=== PATIENT | male | born 1945 | race Caucasian/White ===

== ENCOUNTER 2018-03-12 15:21 | Inpatient (IN) | payer OTHER ==
[2018-03-12 15:32] VITALS: BMI 32.3
--- NOTE | 2018-03-12 15:33 | PDOC ---
Rapid Medical Evaluation Time Seen by Provider: 03/12/18 15:29 Medical Evaluation: 03/12/18 15:29 Pt presents to the ED for evaluation of 3 weeks of sore throat. Also with diarrhea for one week. States he was constipated and a stool softener one week ago and has had diarrhea since. Denies fevers, chills, nausea and vomiting, antibiotic use. Exam: Well appearing, ambulatory Orders: labs, ekg, urine Pt to proceed to ED for further evaluation. Discharge Disposition - Diagnosis Sore throat Diarrhea Qualifiers: Diarrhea type: unspecified type Qualified Code(s): R19.7 - Diarrhea, unspecified - Referrals Referrals: Aster Rodas MD [Primary Care Provider] - - Patient Instructions - Post Discharge Activity
[2018-03-12 16:12] LABS: BASO % 0.1 % (0-2.0); EOS % 0.2 % (0-4.5); LYMPH % 5.1 % (8-40); MCH 29.8 pg (25.7-33.7); MCHC 33.3 g/dl (32.0-35.9); MEAN CELL VOLUME 89.6 fl (80-96); MEAN PLT VOLUME 6.9 fl (7.5-11.1); MONO % 11.3 % (3.8-10.2); NEUT % 83.3 % (42.8-82.8); PLATELET COUNT 291 K/MM3 (134-434); RBC 4.69 M/mm3 (4.00-5.60); RDW 14.4 % (11.9-15.9); WHITE BLOOD COUNT 12.3 K/mm3 (4.0-10.0)
[2018-03-12] MEDS ORDERED: SODIUM CHLORIDE 1,000 ML IV STA (16:16)
[2018-03-12 16:47] LABS: INR 1.29 (0.83-1.09); PROTHROMBIN TIME (PATIENT) 15.3 SEC (9.7-13.0)
--- NOTE | 2018-03-12 16:53 | PDOC ---
History of Present Illness - General Chief Complaint: Diarrhea Stated Complaint: THROAT PAIN Time Seen by Provider: 03/12/18 15:29 Past History - Past Medical History Allergies/Adverse Reactions: Allergies Allergy/AdvReac Type Severity Reaction Status Date / Time No Known Allergies Allergy Verified 03/12/18 15:38 Home Medications: Ambulatory Orders Rosuvastatin Calcium [Crestor] 20 mg PO DAILY 03/12/18 Sildenafil Citrate [Viagra] 100 mg PO ASDIR 03/12/18 Tamsulosin HCl [Flomax] 0.4 mg PO DAILY 03/12/18 COPD: No Disorders: Yes (ED) Hypercholesterolemia: Yes - Surgical History GI Surgery: Yes (colonoscopy 2008) - Suicide/Smoking/Psychosocial Hx Smoking History: Never smoked *Physical Exam - Vital Signs Last Vital Signs Temp Pulse Resp BP Pulse Ox 97.7 F 85 26 H 186/85 H 99 03/12/18 15:30 03/12/18 15:30 03/12/18 15:30 03/12/18 15:30 03/12/18 15:30 ED Treatment Course - LABORATORY CBC & Chemistry Diagram: 03/12/18 15:47 03/12/18 15:47 - ADDITIONAL ORDERS Additional order review: 03/12/18 15:47 RBC 4.69 MCV 89.6 MCHC 33.3 RDW 14.4 MPV 6.9 L Neutrophils % 83.3 H Lymphocytes % 5.1 L Monocytes % 11.3 H Eosinophils % 0.2 Basophils % 0.1 - RADIOLOGY Radiology Studies Ordered: Category Date Time Status ABDOMEN & PELVIS CT WITH CONTR [CT] Stat CT Scan 03/12/18 16:16 Ordered Medical Decision Making - Medical Decision Making 03/12/18 16:41 72 yo M, denies any pmhx, here w/ diarrhea. Pt states he developed constipation 2-3 weeks ago and took 1 dose of mineral oil last week and has had been having persistent watery, non-bloody diarrhea all week. Has been wearing diapers since. Had vague lower abdominal pain at some point that has since resolved. No melena, nausea, vomiting, fever or chills. Also reports sore throat x 3 weeks. No tob hx. No known sick contacts See exam Persistent diarrhea after taking laxative Well dipesh w/ elevated BP and benign abd with soft brown stool in diapers -IVF -labs -cdif -CT Pharyngitis HEENT wnl R/o strep 03/12/18 17:10 Multiple electrolyte derangements on labs, including sodium of 129 with BUN >100 , creatinine of 18! and potassium of 6.1 with an anion gap of 28. Etiology unclear at this time, possibly severe dehydration vs occult kidney disease. Of note, patient denies any previous kidney issues and reports that saw his PMD 2 months ago and had negative labs. Will rpt labs but initiate hyperK cocktail. IVF in progress. EKG unremarkable. Will also place segal and get dry CT a/p as d /w ED attg. 03/12/18 17:54 Case d/w Dr Turner, states she saw patient in office today and that patient had a large diarrheal bowel movement in office. Nancy referred patient to ED for further assessment. States pt has no known h/o renal disease. Pt's BUN in 2016 was 12 and Cr was 1.09. States patient's only medical history is diverticular disease. No history of diverticulitis. Nancy states patient has no history of hypertension, but has noticed that recently pt's blood pressure has been more elevated than usual. 03/12/18 18:04 *DC/Admit/Observation/Transfer Diagnosis at time of Disposition: Sore throat, Hyperkalemia, Dehydration Diarrhea Qualifiers: Diarrhea type: unspecified type Qualified Code(s): R19.7 - Diarrhea, unspecified ARF (acute renal failure) Qualifiers: Acute renal failure type: unspecified Qualified Code(s): N17.9 - Acute kidney failure, unspecified - Referrals Referrals: Aster Rodas MD [Primary Care Provider] - - Patient Instructions - Post Discharge Activity
[2018-03-12 16:54] LABS: ALBUMIN 3.2 g/dl (3.4-5.0); ALK PHOS 119 U/L (45-117); ANION GAP 28 MMOL/L (8-16); BILIRUBIN,TOTAL 0.6 mg/dL (0.2-1); CALCIUM 8.2 mg/dL (8.5-10.1); CHLORIDE 88 mmol/L (98-107); CO2 13 mmol/L (21-32); GLUCOSE,RANDOM 103 mg/dL (74-106); SGOT/AST 30 U/L (15-37); SGPT/ALT 73 U/L (13-61); SODIUM 129 mmol/L (136-145); TOT PROT 7.3 g/dl (6.4-8.2)
[2018-03-12 16:57] LABS: BLOOD UREA NITROGEN 192 mg/dL (7-18)
[2018-03-12 16:58] LABS: CREATININE 18.6 mg/dL (0.55-1.3)
[2018-03-12 16:59] LABS: POTASSIUM 6.1 mmol/L (3.5-5.1)
[2018-03-12] MEDS ORDERED: CALCIUM GLUCONATE 10% - 1,000 MG/10 ML VIAL IVPUSH ONE (17:02)
[2018-03-12] MEDS ORDERED: SODIUM POLYSTYRENE SULFONATE 15 GM/60 ML BOTTLE PO ONE (17:02)
[2018-03-12] MEDS ORDERED: CALCIUM GLUCONATE 10% - 1,000 MG/10 ML VIAL ONE (17:04)
[2018-03-12] MEDS ORDERED: SODIUM BICARBONATE 8.4% 50 MEQ/50 ML DISP.SYRIN IVPUSH ONE (17:04)
[2018-03-12] MEDS ORDERED: SODIUM POLYSTYRENE SULFONATE 15 GM/60 ML BOTTLE ONE (17:04)
[2018-03-12] MEDS ORDERED: DEXTROSE 50%-WATER - 25 GM/50 ML VIAL IVPUSH ONE (17:05)
[2018-03-12] MEDS ORDERED: INSULIN REGULAR HUMAN 100 UNITS/ML *VIAL IVPUSH ONE (17:05)
[2018-03-12] MEDS ORDERED: ALBUTEROL SO4 0.083% IH SOL 2.5 MG/3 ML VIAL.NEB. NEB ONE ×2 (17:05→17:23)
[2018-03-12] MEDS ORDERED: DEXTROSE 50%-WATER - 25 GM/50 ML VIAL ONE (17:23)
[2018-03-12] MEDS ORDERED: SODIUM BICARBONATE 8.4% 50 MEQ/50 ML VIAL ONE ×2 (17:24→17:36)
[2018-03-12] MEDS ORDERED: INSULIN REGULAR HUMAN 100 UNITS/ML *VIAL ONE (17:25)
--- NOTE | 2018-03-12 17:44 | PDOC ---
*Physical Exam - Vital Signs Last Vital Signs Temp Pulse Resp BP Pulse Ox 97.7 F 85 26 H 186/85 H 99 03/12/18 15:30 03/12/18 15:30 03/12/18 15:30 03/12/18 15:30 03/12/18 15:30 - Physical Exam Comments: 03/12/18 18:37 Gen: aaox3, nad heent: dry mm heart: +s1s2 reg lungs: cta b/l abd: soft, LLQ ttp, no rebound or guarding, palpable bladder just below the umbilicus ext: no c/c/e ED Treatment Course - LABORATORY CBC & Chemistry Diagram: 03/12/18 15:47 03/12/18 17:30 - ADDITIONAL ORDERS Additional order review: Laboratory Results 03/12/18 03/12/18 15:47 15:47 PT with INR 15.30 H INR 1.29 H Sodium 129 L Potassium 6.1 H* Chloride 88 L Carbon Dioxide 13 L Anion Gap 28 H BUN 192 H* Creatinine 18.6 H* Creat Clearance w eGFR 2.50 Random Glucose 103 Calcium 8.2 L Total Bilirubin 0.6 AST 30 ALT 73 H Alkaline Phosphatase 119 H Total Protein 7.3 Albumin 3.2 L 03/12/18 15:47 RBC 4.69 MCV 89.6 MCHC 33.3 RDW 14.4 MPV 6.9 L Neutrophils % 83.3 H Lymphocytes % 5.1 L Monocytes % 11.3 H Eosinophils % 0.2 Basophils % 0.1 - Medications Given in the ED: ED Medications Discontinued Medications Generic Name Dose Route Start Last Admin Trade Name Axel PRN Reason Stop Dose Admin Albuterol Sulfate 1 amp 03/12/18 17:05 03/12/18 17:39 Ventolin 0.083% Nebulizer Soln - NEB 03/12/18 17:06 1 amp ONCE ONE Administration Calcium Gluconate 1,000 mg 03/12/18 17:02 03/12/18 17:21 Calcium Gluconate 10% - IVPUSH 03/12/18 17:03 1,000 mg ONCE ONE Administration Dextrose 25 gm 03/12/18 17:05 03/12/18 17:39 D50w (Vial) - IVPUSH 03/12/18 17:06 25 gm NOW ONE Administration Sodium Chloride 1,000 mls @ 1,000 mls/hr 03/12/18 16:16 03/12/18 17:21 Normal Saline - IV 03/12/18 17:15 1,000 mls/hr ASDIR STA Administration Insulin Human Regular 10 units 03/12/18 17:05 03/12/18 17:39 Novolin R Vial *For Ivpush Or Iv Drip Only* IVPUSH 03/12/18 17:06 10 units ONCE ONE Administration Sodium Bicarbonate 50 meq 03/12/18 17:04 03/12/18 17:39 Sodium Bicarbonate 8.4% - IVPUSH 03/12/18 17:05 50 meq ONCE ONE Administration Sodium Polystyrene Sulfonate 30 gm 03/12/18 17:02 03/12/18 17:21 Kayexalate - PO 03/12/18 17:03 30 gm ONCE ONE Administration Medical Decision Making - Medical Decision Making 03/12/18 18:38 a/p: 72yo male signed out from the PA for eval of renal failure -segal catheter placed, pt with >2L output - clamped to avoid a post- obstructive diuresis -suspect renal failure multifactorial secondary to diarrhea x 1 week and enlarged prostate hx -will call nephrology -will obtain noncon ct of abd/pelvis -also with diarrhea x 1 week after taking mineral oil -will send stool culture and c diff - though no recent abx -will need admission 03/12/18 18:[address] Butcher who will see the patient in consult - agrees with the plan EKG: sinus at 82, nl axis, nl interval, no acute st/t wave findings 03/12/18 18:51 case discussed with JUANIS who accepts pt to service *DC/Admit/Observation/Transfer Diagnosis at time of Disposition: Sore throat, Hyperkalemia, Dehydration Diarrhea Qualifiers: Diarrhea type: unspecified type Qualified Code(s): R19.7 - Diarrhea, unspecified ARF (acute renal failure) Qualifiers: Acute renal failure type: unspecified Qualified Code(s): N17.9 - Acute kidney failure, unspecified - Discharge Dispostion Condition at time of disposition: Guarded Decision to Admit order: Yes - Referrals Referrals: Aster Rodas MD [Primary Care Provider] - - Patient Instructions - Post Discharge Activity - Attestations Physician Attestion: 03/12/18 18:52 I, Dr. Bela Esparza, DO, attest that this document has been prepared under my direction and personally reviewed by me in its entirety. I further attest, that it accurately reflects all work, treatment, procedures and medical decision -making performed by me.
[2018-03-12 17:59] LABS: EPI CELLS RARE /HPF (FEW)
[2018-03-12 18:13] LABS: ALBUMIN 2.9 g/dl (3.4-5.0); ALK PHOS 106 U/L (45-117); ANION GAP 27 MMOL/L (8-16); BILIRUBIN,TOTAL 0.6 mg/dL (0.2-1); CALCIUM 8.2 mg/dL (8.5-10.1); CHLORIDE 88 mmol/L (98-107); CO2 12 mmol/L (21-32); GLUCOSE,RANDOM 198 mg/dL (74-106); SGOT/AST 28 U/L (15-37); SGPT/ALT 65 U/L (13-61); SODIUM 127 mmol/L (136-145); TOT PROT 6.6 g/dl (6.4-8.2)
[2018-03-12 18:15] LABS: BLOOD UREA NITROGEN 191 mg/dL (7-18); CREATININE 18.4 mg/dL (0.55-1.3); POTASSIUM 6.4 mmol/L (3.5-5.1)
[2018-03-12] MEDS ORDERED: SODIUM CHLORIDE 0.9% 1000 ML INFUS.BAG IV ONE (18:36)
[2018-03-12 18:49] LABS: URINE APPEARANCE Clear; URINE BILIRUBIN Negative (<2.0 mg/dL); URINE COLOR Yellow; URINE GLUCOSE (UA) Negative (NEGATIVE); URINE KETONE Negative (NEGATIVE); URINE LEUK ESTERASE Negative (NEGATIVE); URINE NITRITE Negative (NEGATIVE); URINE PROTEIN 1+ (NEGATIVE); URINE UROBILINOGEN 0.2 mg/dL (0.2-1.0)
[2018-03-12] MEDS ORDERED: CEFTRIAXONE 1 GM in DEXTROSE 5%-WATER - 100 ML IVPB ONE (20:33)
--- NOTE | 2018-03-12 21:38 | HP ---
CHIEF COMPLAINT: Diarrhea PCP: Dr. Hahn HISTORY OF PRESENT ILLNESS: 72 y/o M with PMHx of Diverticular disease and BPH presents with a 1 week hx of Diarrhea. Patient has felt constipation starting about 3 weeks ago. 1 week ago, Patient took 2 tablespoons of Mineral oil laxative and has started having diarrhea daily since. Patient describes this diarrhea as a mixture of formed and loose brown stools, Non bloody, without any associated abdominal pain or fevers. Patient says he has 10 episodes daily. Additionally he experiences 2/10 , LLQ abdominal pressure that doesnt radiate, only worses with palpation and self-resolves. He has had decreased PO intake for the past 3 weeks. Patient went to visit his PCP today and was sent to [facility] after experiencing a large BM in the office. His last BM was before he went for CT scan. He acknowledges a sore throat 3 weeks ago. He denies any hx of constipation, recent abx use, recent medication changes, or sick contacts with similar illness. Denies any fevers, chills, chest pain, SOB, nausea or vomiting. ER course was notable for: (1) Calcium gluconate, D50 with 10u insulin, Kaexalate (2) C. DIff culture (3) CT A/P Recent Travel: [facility] 3 weeks ago PAST MEDICAL HISTORY: Diverticular disease BPH PAST SURGICAL HISTORY: Denies Social History: Smoking: Denies Alcohol: Once weekly Drugs: Denies Occupation: Retired, Dental lab previously Residence: Home with and daughter Ambulation without any assitance Family History: Denies for both mother and father Allergies No Known Allergies Allergy (Verified 03/12/18 15:38) HOME MEDICATIONS: Home Medications Medication Instructions Recorded Rosuvastatin Calcium [Crestor] 20 mg PO DAILY 03/12/18 Sildenafil Citrate [Viagra] 100 mg PO ASDIR 03/12/18 Tamsulosin HCl [Flomax] 0.4 mg PO DAILY 03/12/18 REVIEW OF SYSTEMS As per HPI PHYSICAL EXAMINATION Vital Signs - 24 hr 03/12/18 03/12/18 03/12/18 15:30 18:06 20:11 Temperature 97.7 F 98.1 F Pulse Rate 85 Pulse Rate [ 88 Left Radial] Respiratory 26 H 18 Rate Blood Pressure 186/85 H Blood Pressure 107/54 L [Left Arm] O2 Sat by Pulse 99 98 98 Oximetry (%) GENERAL: A&Ox3, NAD, lying comfortably HEAD: NCAT EYES: PERRL, EOMI EARS, NOSE, THROAT: Oropharynx clear without exudates. Dry mucous membranes. NECK: No JVD LUNGS: Breath sounds equal, clear to auscultation bilaterally. No wheezes. HEART: Regular rate and rhythm, normal S1 and S2, Murmur at the RUSB ABDOMEN: Soft, LLQ Tender to palpation, Distended, + bowel sounds, no guarding, no rebound MUSCULOSKELETAL: No CVA tenderness. EXTREMITIES: 2+ pulses, No calf tenderness. No peripheral edema. NEUROLOGICAL: Cranial nerves II-XII intact. Normal speech. Normal gait. 5/5 muscle strength to handgrip, Elbow flexion/extension, Shoulder abduction, Hip Flexion, Plantarflexion, dorsiflexion PSYCHIATRIC: Cooperative. Good eye contact. Appropriate mood and affect. SKIN: Warm, dry, no rashes or lesions noted Laboratory Results - last 24 hr 03/12/18 03/12/18 03/12/18 15:44 15:47 15:47 WBC 12.3 H RBC 4.69 Hgb 14.0 Hct 42.0 MCV 89.6 MCH 29.8 MCHC 33.3 RDW 14.4 Plt Count 291 MPV 6.9 L Absolute Neuts (auto) 10.2 H Neutrophils % 83.3 H Lymphocytes % 5.1 L Monocytes % 11.3 H Eosinophils % 0.2 Basophils % 0.1 Nucleated RBC % 0 PT with INR 15.30 H INR 1.29 H Sodium Potassium Chloride Carbon Dioxide Anion Gap BUN Creatinine Creat Clearance w eGFR Random Glucose Lactic Acid Calcium Magnesium Total Bilirubin AST ALT Alkaline Phosphatase Creatine Kinase Creatine Kinase Index CK-MB (CK-2) Total Protein Albumin Lipase 1342 H Urine Color Urine Appearance Urine pH Ur Specific Ellery Urine Protein Urine Glucose (UA) Urine Ketones Urine Blood Urine Nitrite Urine Bilirubin Urine Urobilinogen Ur Leukocyte Esterase Urine WBC (Auto) Urine RBC (Auto) Ur Epithelial Cells Ur Random Sodium 03/12/18 03/12/18 03/12/18 15:47 16:46 17:30 WBC RBC Hgb Hct MCV MCH MCHC RDW Plt Count MPV Absolute Neuts (auto) Neutrophils % Lymphocytes % Monocytes % Eosinophils % Basophils % Nucleated RBC % PT with INR INR Sodium 129 L 127 L Potassium 6.1 H* 6.4 H* Chloride 88 L 88 L Carbon Dioxide 13 L 12 L Anion Gap 28 H 27 H BUN 192 H* 191 H* Creatinine 18.6 H* 18.4 H* Creat Clearance w eGFR 2.50 2.54 Random Glucose 103 198 H Lactic Acid Calcium 8.2 L 8.2 L Magnesium Total Bilirubin 0.6 0.6 AST 30 28 ALT 73 H 65 H Alkaline Phosphatase 119 H 106 Creatine Kinase 553 H Creatine Kinase Index 4.9 CK-MB (CK-2) 27.1 H Total Protein 7.3 6.6 Albumin 3.2 L 2.9 L Lipase Urine Color Yellow Urine Appearance Clear Urine pH 5.0 Ur Specific Ellery <= 1.005 L Urine Protein 1+ H Urine Glucose (UA) Negative Urine Ketones Negative Urine Blood 3+ H Urine Nitrite Negative Urine Bilirubin Negative Urine Urobilinogen 0.2 Ur Leukocyte Esterase Negative Urine WBC (Auto) 5 Urine RBC (Auto) 1 Ur Epithelial Cells Rare Ur Random Sodium 03/12/18 03/12/18 03/12/18 17:30 18:20 18:49 WBC RBC Hgb Hct MCV MCH MCHC RDW Plt Count MPV Absolute Neuts (auto) Neutrophils % Lymphocytes % Monocytes % Eosinophils % Basophils % Nucleated RBC % PT with INR INR Sodium Potassium Chloride Carbon Dioxide Anion Gap BUN Creatinine Creat Clearance w eGFR Random Glucose Lactic Acid 1.0 Calcium Magnesium 2.8 H Total Bilirubin AST ALT Alkaline Phosphatase Creatine Kinase Creatine Kinase Index CK-MB (CK-2) Total Protein Albumin Lipase Urine Color Urine Appearance Urine pH Ur Specific Ellery Urine Protein Urine Glucose (UA) Urine Ketones Urine Blood Urine Nitrite Urine Bilirubin Urine Urobilinogen Ur Leukocyte Esterase Urine WBC (Auto) Urine RBC (Auto) Ur Epithelial Cells Ur Random Sodium 35 L Active Medications Heparin Sodium (Porcine) (Heparin -) 5,000 unit SQ TID [facility] Hydralazine HCl (Apresoline -) 50 mg PO TID [facility] Sodium Chloride (Normal Saline -) 1,000 mls @ 125 mls/hr IV ASDIR [facility] ASSESSMENT/PLAN: 72 y/o M with PMHx of Diverticular disease and BPH presents with a 1 week hx of Diarrhea found to have Hyperkalemia and JUMANA #Hyperkalemia -Likely due to JUMANA -Given Calcium gluconate, D50 with 10u insulin, Kaexalate in ED -IV NS @ 125 mls/hr -ABG Pending; Dialysis if intractable acidosis #JUMANA (Post renal) -Nephrology (Dr. Cannon) Consulted -IV NS @ 125 mls/hr -UA, Urine Cr, Urine Lytes ordered -Ordoñez catheter placed, has already emptied 2L in ED -CT A/P Pending #Diarrhea -Likey due to Mineral Oil Laxative however timeframe is extensive -Patient additionally given kayexalate -C. Diff pending -Ceftriaxone, Flagyl started on 03/12 -If does not resolve, consider further imaging as he has a hx of Diverticular disease as per PMD #Severe HTN -Patient denies any hx -Hydralazine 50mg PO TID -Continue to monitor #FEN -IV NS -Treating for Hyperkalemia, Hyponatremia -Sodium controlled diet #PPx -DVT: Heparin Visit type - Emergency Visit Emergency Visit: Yes ED Registration Date: 03/12/18 Care time: The patient presented to the Emergency Department on the above date and was hospitalized for further evaluation of their emergent condition. - New Patient This patient is new to me today: Yes Date on this admission: 03/13/18 - Critical Care Critical Care patient: No
--- NOTE | 2018-03-12 21:46 | PN ---
Teaching Attending Note Name of Resident: Kiarra Casiano ATTENDING PHYSICIAN STATEMENT I saw and evaluated the patient. I reviewed the resident's note and discussed the case with the resident. I agree with the resident's findings and plan as documented. SUBJECTIVE: OBJECTIVE: ASSESSMENT AND PLAN: this is a 72 y/o male patient with hx of HTN, DL, presented to the ER for 1 week diarrhea, and urine retention, according to the patient the diarrhea started when he took some mineral oil 1 week ago and the diarrhea did not resolve. plan: - admit patient to telemetry Hyperkalemia: 2/2 to acute Kidney injury - patient received insulin, dextrose, kayexelate - IV fluid hydration - manage with hyperkalemia with ECG with dialysis if needed - check acidosis if it is intractable then will consider urgent dialysis - patient does JUMANA: renal evaluation IVF hydration urine anaylsis - urine creatinine, urine na HTN: - hydralazine 50mg TID avoid nephrotoxic medication
[2018-03-12 23:36] LABS: ARTERIAL BLD GAS O2 SATURATION 96.8 % (90-98.9); ARTERIAL BLOOD GAS PCO2 20.8 mmHg (35-45); ARTERIAL BLOOD GAS PO2 95.5 mmHg (70-100)
[2018-03-12 23:37] LABS: ALLENS TEST POSITIVE
[2018-03-12] MEDS: hydrALAZINE HCL 50 MG TABLET (FP) PO SCH (23:58)
[2018-03-12] MEDS: HEPARIN NA (PORCINE) 5,000 UNITS/ML 1ML VIAL SQ SCH (23:58)
[2018-03-13 00:22] LABS: URINE APPEARANCE SLCLOUDY; URINE BILIRUBIN NEGATIVE (<2.0 mg/dL); URINE COLOR LTYELLOW; URINE GLUCOSE (UA) NEGATIVE (NEGATIVE); URINE KETONE NEGATIVE (NEGATIVE); URINE LEUK ESTERASE TRACE (NEGATIVE); URINE NITRITE NEGATIVE (NEGATIVE); URINE PROTEIN 1+ (NEGATIVE); URINE UROBILINOGEN NEGATIVE mg/dL (0.2-1.0)
[2018-03-13] MEDS: SODIUM CHLORIDE 1,000 ML IV SCH ×4 (00:30→22:00)
[2018-03-13 00:32] LABS: EPI CELLS RARE /HPF (FEW); URINE BACTERIA RARE /hpf (NONE SEEN); URINE MUCUS RARE
[2018-03-13 00:54] LABS: ALK PHOS 107 U/L (45-117); ANION GAP 21 MMOL/L (8-16); BILIRUBIN,TOTAL 0.7 mg/dL (0.2-1); CALCIUM 8.6 mg/dL (8.5-10.1); CHLORIDE 105 mmol/L (98-107); CO2 13 mmol/L (21-32); GLUCOSE,RANDOM 179 mg/dL (74-106); POTASSIUM 4.1 mmol/L (3.5-5.1); SGOT/AST 32 U/L (15-37); SGPT/ALT 64 U/L (13-61); SODIUM 139 mmol/L (136-145)
[2018-03-13 00:58] LABS: BLOOD UREA NITROGEN 151 mg/dL (7-18)
[2018-03-13 00:59] LABS: CREATININE 10.9 mg/dL (0.55-1.3)
[2018-03-13] MEDS ORDERED: CEFTRIAXONE 1 GM in DEXTROSE 5%-WATER - 50 ML IVPB ONE (01:15)
[2018-03-13] MEDS ORDERED: DEXTROSE 5%-WATER - 50 ML IVPB ONE (01:23)
[2018-03-13] MEDS ORDERED: cefTRIAXone SODIUM 1 GM VIAL ONE (01:23)
[2018-03-13] MEDS: hydrALAZINE HCL 50 MG TABLET (FP) PO SCH ×3 (06:22→22:07)
[2018-03-13] MEDS: HEPARIN NA (PORCINE) 5,000 UNITS/ML 1ML VIAL SQ SCH ×3 (06:22→22:07)
[2018-03-13 08:30] LABS: ALBUMIN 2.8 g/dl (3.4-5.0); ALK PHOS 100 U/L (45-117); ANION GAP 10 MMOL/L (8-16); BILIRUBIN,TOTAL 0.8 mg/dL (0.2-1); BLOOD UREA NITROGEN 98 mg/dL (7-18); CALCIUM 8.6 mg/dL (8.5-10.1); CHLORIDE 117 mmol/L (98-107); CO2 20 mmol/L (21-32); CREATININE 4.8 mg/dL (0.55-1.3); GLUCOSE,RANDOM 150 mg/dL (74-106); MAGNESIUM 2.7 mg/dL (1.8-2.4); PHOSPHOROUS 4.4 mg/dL (2.5-4.9); SGOT/AST 24 U/L (15-37); SGPT/ALT 56 U/L (13-61); SODIUM 148 mmol/L (136-145); TOT PROT 6.6 g/dl (6.4-8.2)
--- NOTE | 2018-03-13 08:49 | PN ---
Progress Note (short form) - Note Progress Note: Patient is comfortable with no acute distress. Vital Signs Temperature 98.4 F 03/13/18 06:00 Pulse Rate 78 03/13/18 06:00 Respiratory Rate 18 03/13/18 06:00 Blood Pressure 162/81 03/13/18 06:00 O2 Sat by Pulse Oximetry (%) 96 03/13/18 08:00 GENERAL: A&Ox3, NAD, lying comfortably HEAD: NCAT, EYES: PERRL, EOMI ,EARS, NOSE, THROAT: Oropharynx clear without exudates. Dry mucous membranes. NECK: No JVD LUNGS: Breath sounds equal, clear to auscultation bilaterally. No wheezes. HEART: Regular rate and rhythm, normal S1 and S2, Murmur at the RUSB ABDOMEN: Soft, LLQ Tender to palpation, Distended, + bowel sounds, no guarding, no rebound EXTREMITIES: 2+ pulses, No calf tenderness. No peripheral edema. NEUROLOGICAL: Cranial nerves II-XII intact. Normal speech. Normal gait. PSYCHIATRIC: Cooperative. Good eye contact. Appropriate mood and affect. SKIN: Warm, dry, no rashes or lesions noted : Ordoñez catheter CBCD WBC 12.3 K/mm3 (4.0-10.0) H 03/12/18 15:47 RBC 4.69 M/mm3 (4.00-5.60) 03/12/18 15:47 Hgb 14.0 GM/dL (11.7-16.9) 03/12/18 15:47 Hct 42.0 % (35.4-49) 03/12/18 15:47 MCV 89.6 fl (80-96) 03/12/18 15:47 MCHC 33.3 g/dl (32.0-35.9) 03/12/18 15:47 RDW 14.4 % (11.9-15.9) 03/12/18 15:47 Plt Count 291 K/MM3 (134-434) 03/12/18 15:47 MPV 6.9 fl (7.5-11.1) L 03/12/18 15:47 CMP Sodium 148 mmol/L (136-145) H 03/13/18 06:14 Potassium 4.0 mmol/L (3.5-5.1) 03/13/18 06:14 Chloride 117 mmol/L (98-107) H 03/13/18 06:14 Carbon Dioxide 20 mmol/L (21-32) L 03/13/18 06:14 Anion Gap 10 MMOL/L (8-16) 03/13/18 06:14 BUN 98 mg/dL (7-18) H 03/13/18 06:14 Creatinine 4.8 mg/dL (0.55-1.3) H 03/13/18 06:14 Creat Clearance w eGFR 11.95 (>60) 03/13/18 06:14 Random Glucose 150 mg/dL (74-106) H 03/13/18 06:14 Calcium 8.6 mg/dL (8.5-10.1) 03/13/18 06:14 Total Bilirubin 0.8 mg/dL (0.2-1) 03/13/18 06:14 AST 24 U/L (15-37) 03/13/18 06:14 ALT 56 U/L (13-61) 03/13/18 06:14 Alkaline Phosphatase 100 U/L (45-117) 03/13/18 06:14 Total Protein 6.6 g/dl (6.4-8.2) 03/13/18 06:14 Albumin 2.8 g/dl (3.4-5.0) L 03/13/18 06:14 CARDIAC ENZYMES Creatine Kinase 553 IU/L (26-308) H 03/12/18 15:47 Current Medications Generic Name Dose Route Start Last Admin Trade Name Freq PRN Reason Stop Dose Admin Heparin Sodium (Porcine) 5,000 unit 03/12/18 22:00 03/13/18 06:22 Heparin - SQ 5,000 unit TID ARRON Administration Hydralazine HCl 50 mg 03/12/18 22:15 03/13/18 06:22 Apresoline - PO 50 mg TID ARRON Administration Sodium Chloride 1,000 mls @ 125 mls/hr 03/12/18 21:45 03/13/18 00:30 Normal Saline - IV 125 mls/hr ASDIR ARRON Administration Home Medications Medication Instructions Recorded Rosuvastatin Calcium [Crestor] 20 mg PO DAILY 03/12/18 Sildenafil Citrate [Viagra] 100 mg PO ASDIR 03/12/18 Tamsulosin HCl [Flomax] 0.4 mg PO DAILY 03/12/18 Aspirin 81 mg PO DAILY 03/13/18 Laboratory Tests 03/12/18 03/12/18 03/12/18 15:47 17:30 23:59 BUN 192 H* 191 H* 151 H* Creatinine 18.6 H* 18.4 H* 10.9 H* Assessment/plan: 72 y/o M with PMHx of Diverticular disease and BPH presents with a 1 week hx of Diarrhea found to have Hyperkalemia and JUMANA #JUMANA : Due to obstructive Uropathy 18.6-->18.4-->10.9 On Tamsulosin, will get urology consult #Acute Hyperkalemia : improved Nephrology (Dr. Cannon) Consulted #Severe HTN: Hydralazine 50mg PO TID #Diarrhea improved DVT PPx: Heparin Visit type - Emergency Visit Emergency Visit: Yes ED Registration Date: 03/12/18 Care time: The patient presented to the Emergency Department on the above date and was hospitalized for further evaluation of their emergent condition. - New Patient This patient is new to me today: Yes Date on this admission: 03/13/18 - Critical Care Critical Care patient: No - Discharge Referral Referred to [facility] No
[2018-03-13 11:18] LABS: BASO % 0.3 % (0-2.0); EOS % 0.1 % (0-4.5); HEMATOCRIT 39.4 % (35.4-49); HEMOGLOBIN 13.1 GM/dL (11.7-16.9); MCH 29.7 pg (25.7-33.7); MCHC 33.3 g/dl (32.0-35.9); MEAN CELL VOLUME 89.3 fl (80-96); MEAN PLT VOLUME 7.1 fl (7.5-11.1); MONO % 14.6 % (3.8-10.2); PLATELET COUNT 281 K/MM3 (134-434); RBC 4.42 M/mm3 (4.00-5.60); RDW 14.2 % (11.9-15.9); WHITE BLOOD COUNT 10.7 K/mm3 (4.0-10.0)
--- NOTE | 2018-03-13 15:00 | EKG ---
Test Reason : Blood Pressure : / mmHG Vent. Rate : 082 BPM Atrial Rate : 082 BPM P-R Int : 168 ms QRS Dur : 100 ms QT Int : 390 ms P-R-T Axes : 056 -04 038 degrees QTc Int : 455 ms NORMAL SINUS RHYTHM MINIMAL VOLTAGE CRITERIA FOR LVH, MAY BE NORMAL VARIANT BORDERLINE ECG WHEN COMPARED WITH ECG OF 15-OCT-2008 11:10, NO SIGNIFICANT CHANGE WAS FOUND Confirmed by MD Lula, Jimmy ([id number]) on 03/13/2018 2:59:52 PM Referred By: Confirmed By:Jimmy Cotton MD
--- NOTE | 2018-03-13 15:30 | CON.NEP ---
Consult Consult Specialty:: nephrology Referred by:: ghulam Reason for Consultation:: acute renal failure - History of Present Illness Chief Complaint: unable to urinate freely - Alcohol/Substance Use Hx Alcohol Use: No - Smoking History Smoking history: Never smoked Have you smoked in the past 12 months: No Home Medications - Allergies Allergies/Adverse Reactions: Allergies Allergy/AdvReac Type Severity Reaction Status Date / Time No Known Allergies Allergy Verified 03/12/18 15:38 - Home Medications Home Medications: Ambulatory Orders Rosuvastatin Calcium [Crestor] 20 mg PO DAILY 03/12/18 Sildenafil Citrate [Viagra] 100 mg PO ASDIR 03/12/18 Tamsulosin HCl [Flomax] 0.4 mg PO DAILY 03/12/18 Aspirin 81 mg PO DAILY 03/13/18 Nephrology Consult - Height Height: 5 ft 10 in - Weight Weight: 225 lb - BMI Body Mass Index (BMI): 32.3 - Lab Results CBC,BMP: CBC, BMP 03/13/18 06:14 03/13/18 06:14 Anion Gap: Anion Gap Anion Gap 10 MMOL/L (8-16) 03/13/18 06:14 - Physical Examination Vital Signs: Vital Signs Temperature 97.5 F L 03/13/18 14:32 Pulse Rate 80 03/13/18 14:32 Respiratory Rate 18 03/13/18 14:32 Blood Pressure 154/84 03/13/18 14:32 O2 Sat by Pulse Oximetry (%) 97 03/13/18 12:00 Assessment/Plan advanced renal failure and urinary retention renal function improving after segal catheter inserion hypernatremia noted and s/p vomiting- he may not be able to drink enough water Plan- bmp now to f/u serum sodium continue ivf to match urine output
[2018-03-13 17:55] LABS: ANION GAP 8 MMOL/L (8-16); BLOOD UREA NITROGEN 47 mg/dL (7-18); CALCIUM 8.4 mg/dL (8.5-10.1); CHLORIDE 122 mmol/L (98-107); CO2 24 mmol/L (21-32); CREATININE 1.7 mg/dL (0.55-1.3); GLUCOSE,RANDOM 165 mg/dL (74-106); POTASSIUM 4.1 mmol/L (3.5-5.1); SODIUM 153 mmol/L (136-145)
[2018-03-14] MEDS: hydrALAZINE HCL 50 MG TABLET (FP) PO SCH ×3 (06:18→21:14)
[2018-03-14] MEDS: HEPARIN NA (PORCINE) 5,000 UNITS/ML 1ML VIAL SQ SCH ×3 (06:19→21:13)
[2018-03-14 07:35] LABS: ALBUMIN 2.5 g/dl (3.4-5.0); ALK PHOS 85 U/L (45-117); ANION GAP 7 MMOL/L (8-16); BILIRUBIN,TOTAL 0.7 mg/dL (0.2-1); BLOOD UREA NITROGEN 22 mg/dL (7-18); CALCIUM 8.4 mg/dL (8.5-10.1); CHLORIDE 121 mmol/L (98-107); CO2 26 mmol/L (21-32); CREATININE 1.1 mg/dL (0.55-1.3); GLUCOSE,RANDOM 150 mg/dL (74-106); MAGNESIUM 2.5 mg/dL (1.8-2.4); PHOSPHOROUS 1.8 mg/dL (2.5-4.9); POTASSIUM 3.9 mmol/L (3.5-5.1); SGOT/AST 24 U/L (15-37); SGPT/ALT 45 U/L (13-61); SODIUM 154 mmol/L (136-145); TOT PROT 6.2 g/dl (6.4-8.2)
[2018-03-14 07:53] LABS: HEMOGLOBIN 12.7 GM/dL (11.7-16.9); MCH 30.3 pg (25.7-33.7); MCHC 33.6 g/dl (32.0-35.9); MEAN CELL VOLUME 90.3 fl (80-96); PLATELET COUNT 306 K/MM3 (134-434); RBC 4.21 M/mm3 (4.00-5.60); RDW 14.2 % (11.9-15.9); WHITE BLOOD COUNT 9.7 K/mm3 (4.0-10.0)
--- NOTE | 2018-03-14 12:42 | PN ---
Physical Exam: SUBJECTIVE: Patient seen and examined. Pt. had no diarrhea over night. Pt. vomited 2x yesterday ut denies any vomiting overnight and denies any nausea. Pt. endorses progressive blurry vision for 2-3 years. Pt. states had echo done 1 -2 years ago in a private office, unsure of results and of who and where it was done. OBJECTIVE: Vital Signs Period Temp Pulse Resp BP Sys/Chan Pulse Ox Last 24 Hr 97.4 F-98 F 74-85 18-20 151-176/64-84 94-97 GENERAL: The patient is awake, alert, and fully oriented, in no acute distress. HEAD: Normal with no signs of trauma. EYES: sclera anicteric, conjunctiva clear. No ptosis. ENT: Ears normal, nares patent, moist mucous membranes. NECK: Trachea midline, supple, no carotid bruit. LUNGS: Breath sounds equal, clear to auscultation bilaterally, no wheezes, no crackles, no accessory muscle use. HEART: Irregular rate and rhythm, S1, S2 without murmur, rub or gallop. ABDOMEN: Soft, nontender, nondistended, normoactive bowel sounds, no guarding, no rebound EXTREMITIES: 2+ dorsal pedal pulses, warm, well-perfused, no edema. NEUROLOGICAL: Normal speech, gait not observed. PSYCH: Normal mood, normal affect? SKIN: Warm, dry, normal turgor Laboratory Results - last 24 hr 03/13/18 03/14/18 03/14/18 16:00 06:19 06:19 WBC 9.7 RBC 4.21 Hgb 12.7 Hct 38.0 MCV 90.3 MCH 30.3 MCHC 33.6 RDW 14.2 Plt Count 306 MPV 7.0 L Sodium 153 H 154 H Potassium 4.1 3.9 Chloride 122 H 121 H Carbon Dioxide 24 26 Anion Gap 8 7 L BUN 47 H 22 H Creatinine 1.7 H 1.1 Creat Clearance w eGFR 39.60 > 60 Random Glucose 165 H 150 H Calcium 8.4 L 8.4 L Phosphorus 1.8 L Magnesium 2.5 H Total Bilirubin 0.7 AST 24 ALT 45 Alkaline Phosphatase 85 Total Protein 6.2 L Albumin 2.5 L Active Medications Current Medications Heparin Sodium (Porcine) (Heparin -) 5,000 unit SQ TID [facility] Last Admin: 03/14/18 06:19 Dose: 5,000 unit Hydralazine HCl (Apresoline -) 50 mg PO TID [facility] Last Admin: 03/14/18 06:18 Dose: 50 mg Sodium Chloride (Normal Saline -) 1,000 mls @ 125 mls/hr IV ASDIR [facility] Last Admin: 03/13/18 22:00 Dose: 125 mls/hr Home Medications Medication Instructions Recorded Rosuvastatin Calcium [Crestor] 20 mg PO DAILY 03/12/18 Sildenafil Citrate [Viagra] 100 mg PO ASDIR 03/12/18 Tamsulosin HCl [Flomax] 0.4 mg PO DAILY 03/12/18 Aspirin 81 mg PO DAILY 03/13/18 ASSESSMENT/PLAN: 72 y/o M with PMHx of Diverticular disease and BPH presents with a 1 week hx of Diarrhea found to have Hyperkalemia and JUMANA #Nephrology -JUMANA(post-renal) Nephrology (Dr. Cannon) Consulted IV NS @ 125 mls/hr UA, Urine Cr, Urine Lytes ordered Ordoñez catheter placed CT A/P: distended bladder, b/l hydronephrosis 2/2 obstruction, enlarged prostate , diverticulosis w/ colonic fat stranding suggesting possible diverticulitis, small amount of intraperitoneal fluid, non-obstructing cholelithiasis. -Hyperkalemia 2/2 to JUMANA-resolved c/w IVF monitor BMP monitor UOP #Gastroenterology -Diarrhea-resolved Likey due to Mineral Oil Laxative however timeframe is extensive Patient additionally given kayexalate in ED C. Diff NTD D/c-Ceftriaxone and Flagyl #Cardiology -Hypertensive Emergency vs. Urgency BP on admission: 186/85; BP Today: 176/83 Patient denies any hx of HTN? Pt. endorses having and Echo 1-2 years ago at private facility( unsure of name or where), was never notified of results. Pt. endorses progressive worsening blurry vision for last 2-3 years; would benefit from outpatient Opthamology referral. c/w Hydralazine 50mg PO TID Continue to monitor BP #FEN -IV NS -monitor electrolytes and replete as needed -Sodium controlled diet #PPx -DVT: Heparin SQ TID
--- NOTE | 2018-03-14 18:52 | PN ---
Teaching Attending Note Name of Resident: Philip Montes ATTENDING PHYSICIAN STATEMENT I saw and evaluated the patient. I reviewed the resident's note and discussed the case with the resident. I agree with the resident's findings and plan as documented. SUBJECTIVE: Patient improved, doing better OBJECTIVE: Vital Signs Temperature 98.3 F 03/14/18 17:05 Pulse Rate 65 03/14/18 17:05 Respiratory Rate 18 03/14/18 17:05 Blood Pressure 140/58 L 03/14/18 17:05 O2 Sat by Pulse Oximetry (%) 96 03/14/18 09:00 GENERAL: A&Ox3, NAD, lying comfortably HEAD: NCAT: EYES: PERRL, EOMI EARS, NOSE, THROAT: Oropharynx clear without exudates. Dry mucous membranes. NECK: No JVD ,LUNGS: Breath sounds equal, clear to auscultation bilaterally. No wheezes. HEART: Regular rate and rhythm, normal S1 and S2, Murmur at the RUSB ABDOMEN: Soft, LLQ Tender to palpation, Distended, + bowel sounds, no guarding, no rebound EXTREMITIES: 2+ pulses, No calf tenderness. No peripheral edema. NEUROLOGICAL: Cranial nerves II-XII intact. Normal speech. Normal gait. PSYCHIATRIC: Cooperative. Good eye contact. Appropriate mood and affect. SKIN: Warm, dry, no rashes or lesions noted CBCD WBC 9.7 K/mm3 (4.0-10.0) 03/14/18 06:19 RBC 4.21 M/mm3 (4.00-5.60) 03/14/18 06:19 Hgb 12.7 GM/dL (11.7-16.9) 03/14/18 06:19 Hct 38.0 % (35.4-49) 03/14/18 06:19 MCV 90.3 fl (80-96) 03/14/18 06:19 MCHC 33.6 g/dl (32.0-35.9) 03/14/18 06:19 RDW 14.2 % (11.9-15.9) 03/14/18 06:19 Plt Count 306 K/MM3 (134-434) 03/14/18 06:19 MPV 7.0 fl (7.5-11.1) L 03/14/18 06:19 CMP Sodium 154 mmol/L (136-145) H 03/14/18 06:19 Potassium 3.9 mmol/L (3.5-5.1) 03/14/18 06:19 Chloride 121 mmol/L (98-107) H 03/14/18 06:19 Carbon Dioxide 26 mmol/L (21-32) 03/14/18 06:19 Anion Gap 7 MMOL/L (8-16) L 03/14/18 06:19 BUN 22 mg/dL (7-18) H 03/14/18 06:19 Creatinine 1.1 mg/dL (0.55-1.3) 03/14/18 06:19 Creat Clearance w eGFR > 60 (>60) 03/14/18 06:19 Random Glucose 150 mg/dL (74-106) H 03/14/18 06:19 Calcium 8.4 mg/dL (8.5-10.1) L 03/14/18 06:19 Total Bilirubin 0.7 mg/dL (0.2-1) 03/14/18 06:19 AST 24 U/L (15-37) 03/14/18 06:19 ALT 45 U/L (13-61) 03/14/18 06:19 Alkaline Phosphatase 85 U/L (45-117) 03/14/18 06:19 Total Protein 6.2 g/dl (6.4-8.2) L 03/14/18 06:19 Albumin 2.5 g/dl (3.4-5.0) L 03/14/18 06:19 CARDIAC ENZYMES Creatine Kinase 553 IU/L (26-308) H 03/12/18 15:47 Current Medications Generic Name Dose Route Start Last Admin Trade Name Freq PRN Reason Stop Dose Admin Heparin Sodium (Porcine) 5,000 unit 03/12/18 22:00 03/14/18 13:09 Heparin - SQ 5,000 unit TID [facility] Administration Hydralazine HCl 50 mg 03/12/18 22:15 03/14/18 13:09 Apresoline - PO 50 mg TID [facility] Administration Sodium Chloride 1,000 mls @ 125 mls/hr 03/12/18 21:45 03/13/18 22:00 Normal Saline - IV 125 mls/hr ASDIR [facility] Administration Home Medications Medication Instructions Recorded Rosuvastatin Calcium [Crestor] 20 mg PO DAILY 03/12/18 Sildenafil Citrate [Viagra] 100 mg PO ASDIR 03/12/18 Tamsulosin HCl [Flomax] 0.4 mg PO DAILY 03/12/18 Aspirin 81 mg PO DAILY 03/13/18 ASSESSMENT AND PLAN: 72 y/o M with PMHx of Diverticular disease and BPH presents with a 1 week hx of Diarrhea found to have Hyperkalemia and JUMANA #JUMANA : Due to obstructive Uropathy 18.6-->18.4-->10.9-->1.1 On Tamsulosin, will get urology consult #Acute Hyperkalemia : will start on 1/2 ns at 75cc/hr ; Nephrology (Dr. Cannon) Consulted #Severe HTN: Hydralazine 50mg PO TID #Diarrhea improved DVT PPx: Heparin
[2018-03-14] MEDS ORDERED: SODIUM CHLORIDE 0.45% 1,000 ML IV SCH (19:45)
--- NOTE | 2018-03-14 19:54 | PN ---
Progress Note (short form) - Note Progress Note: zachary obstructive uropathy Current Medications Heparin Sodium (Porcine) (Heparin -) 5,000 unit SQ TID [facility] Last Admin: 03/14/18 13:09 Dose: 5,000 unit Hydralazine HCl (Apresoline -) 50 mg PO TID [facility] Last Admin: 03/14/18 13:09 Dose: 50 mg Sodium Chloride (1/2 Normal Saline) 1,000 mls @ 75 mls/hr IV ASDIR [facility] Stop: 03/15/18 09:04 Tamsulosin HCl (Flomax -) 0.8 mg PO DAILY@0830 [facility] Last Vital Signs Temp Pulse Resp BP Pulse Ox 98.3 F 65 18 140/58 L 96 03/14/18 17:05 03/14/18 17:05 03/14/18 17:05 03/14/18 17:05 03/14/18 09:00 lungs clear heart reg abd soft nontender ext no edema CBC, BMP 03/14/18 06:19 03/14/18 06:19 IMP- hypernatremia no drinikng water post obstructive diuresis contrating defect Plan- agree with change to d5w IV
[2018-03-14] MEDS ORDERED: ONDANSETRON 4 MG/2 ML VIAL IVPUSH ONE (20:08)
[2018-03-14] MEDS ORDERED: PROCHLORPERAZINE MALEATE 5 MG TABLET PO ONE (20:15)
[2018-03-15] MEDS: hydrALAZINE HCL 50 MG TABLET (FP) PO SCH ×2 (05:21→13:48)
[2018-03-15] MEDS: HEPARIN NA (PORCINE) 5,000 UNITS/ML 1ML VIAL SQ SCH ×2 (05:21→13:48)
[2018-03-15 07:03] LABS: HEMATOCRIT 37.2 % (35.4-49); HEMOGLOBIN 12.2 GM/dL (11.7-16.9); MCHC 32.9 g/dl (32.0-35.9); MEAN PLT VOLUME 6.7 fl (7.5-11.1); PLATELET COUNT 271 K/MM3 (134-434); RBC 4.09 M/mm3 (4.00-5.60); RDW 14.5 % (11.9-15.9); WHITE BLOOD COUNT 10.4 K/mm3 (4.0-10.0)
[2018-03-15 07:37] LABS: ANION GAP 9 MMOL/L (8-16); BLOOD UREA NITROGEN 11 mg/dL (7-18); CALCIUM 7.9 mg/dL (8.5-10.1); CHLORIDE 114 mmol/L (98-107); CO2 27 mmol/L (21-32); CREATININE 0.8 mg/dL (0.55-1.3); GLUCOSE,RANDOM 116 mg/dL (74-106); MAGNESIUM 2.1 mg/dL (1.8-2.4); PHOSPHOROUS 2.4 mg/dL (2.5-4.9); POTASSIUM 3.6 mmol/L (3.5-5.1); SODIUM 149 mmol/L (136-145)
[2018-03-15] MEDS ORDERED: TAMSULOSIN HCL 0.4 MG CAP PO SCH (08:30)
[2018-03-15 09:45] VITALS: BP 126/45; PULSE 64; TEMP 97.9
--- NOTE | 2018-03-15 12:38 | DS ---
Physical Exam: SUBJECTIVE: Patient seen and examined this morning at bedside. No longer having belly pain, diarrhea. Denies Fevers, chills, chest pain, SOB nausea, vomiting, constipation. OBJECTIVE: Vital Signs Period Temp Pulse Resp BP Sys/Chan Pulse Ox Last 24 Hr 97.6 F-98.6 F 64-72 18-20 126-180/45-78 97 Intake & Output 03/12/18 03/13/18 03/14/18 03/15/18 23:59 23:59 23:59 23:59 Intake Total 1000 4278 3725 Output Total 1700 38594 2800 1200 Balance -700 6862 925 -1200 Weight 102.058 kg 102.058 kg PHYSICAL EXAM GENERAL: A&Ox3, NAD, lying comfortably HEAD: NCAT EYES: PERRL, EOMI EARS, NOSE, THROAT: Oropharynx clear without exudates. Dry mucous membranes. NECK: No JVD LUNGS: Breath sounds equal, clear to auscultation bilaterally. No wheezes. HEART: Regular rate and rhythm, normal S1 and S2, Murmur at the RUSB ABDOMEN: Soft, nontender, nondistended, + bowel sounds, no guarding, no rebound : Ordoñez catheter placed draining clear yellow urine EXTREMITIES: 2+ pulses, No peripheral edema. NEUROLOGICAL: Cranial nerves II-XII intact. Normal speech. Normal gait. Gross sensation intact globally. 5/5 muscle strength to handgrip, Elbow flexion/ extension, Shoulder abduction, Hip Flexion, Plantarflexion, dorsiflexion SKIN: Warm, dry, no rashes or lesions noted LABS Laboratory Last Values WBC 10.4 K/mm3 (4.0-10.0) H 03/15/18 05:50 RBC 4.09 M/mm3 (4.00-5.60) 03/15/18 05:50 Hgb 12.2 GM/dL (11.7-16.9) 03/15/18 05:50 Hct 37.2 % (35.4-49) 03/15/18 05:50 MCV 91.0 fl (80-96) 03/15/18 05:50 MCH 30.0 pg (25.7-33.7) 03/15/18 05:50 MCHC 32.9 g/dl (32.0-35.9) 03/15/18 05:50 RDW 14.5 % (11.9-15.9) 03/15/18 05:50 Plt Count 271 K/MM3 (134-434) 03/15/18 05:50 MPV 6.7 fl (7.5-11.1) L 03/15/18 05:50 Absolute Neuts (auto) 8.7 K/mm3 (1.5-8.0) H 03/13/18 06:14 Neutrophils % 81.0 % (42.8-82.8) 03/13/18 06:14 Lymphocytes % 4.0 % (8-40) L D 03/13/18 06:14 Monocytes % 14.6 % (3.8-10.2) H 03/13/18 06:14 Eosinophils % 0.1 % (0-4.5) 03/13/18 06:14 Basophils % 0.3 % (0-2.0) 03/13/18 06:14 Nucleated RBC % 0 % (0-0) 03/13/18 06:14 PT with INR 15.30 SEC (9.7-13.0) H 03/12/18 15:47 INR 1.29 (0.83-1.09) H 03/12/18 15:47 Anticoagulation Therapy No Result Required. 03/12/18 23:20 Puncture Site Left radial 03/12/18 23:20 ABG pH 7.40 (7.35-7.45) 03/12/18 23:20 ABG pCO2 at Pt Temp 20.8 mmHg (35-45) L 03/12/18 23:20 ABG pO2 at Pt Temp 95.5 mmHg (70-100) 03/12/18 23:20 ABG HCO3 12.6 meq/L (22-26) L* 03/12/18 23:20 ABG O2 Sat (Measured) 96.8 % (90-98.9) 03/12/18 23:20 ABG O2 Content 18.4 % vol (15-22) 03/12/18 23:20 ABG Base Excess -10.0 meq/l (-2-2) L 03/12/18 23:20 Fredrick Test Positive 03/12/18 23:20 O2 Delivery Device No Result Required. 03/12/18 23:20 Oxygen Flow Rate Fio2 21% room air 03/12/18 23:20 Vent Mode No Result Required. 03/12/18 23:20 Vent Rate No Result Required. 03/12/18 23:20 Mechanical Rate No Result Required. 03/12/18 23:20 Pressure Support Vent No Result Required. 03/12/18 23:20 Sodium 149 mmol/L (136-145) H 03/15/18 05:50 Potassium 3.6 mmol/L (3.5-5.1) 03/15/18 05:50 Chloride 114 mmol/L (98-107) H 03/15/18 05:50 Carbon Dioxide 27 mmol/L (21-32) 03/15/18 05:50 Anion Gap 9 MMOL/L (8-16) 03/15/18 05:50 BUN 11 mg/dL (7-18) 03/15/18 05:50 Creatinine 0.8 mg/dL (0.55-1.3) 03/15/18 05:50 Creat Clearance w eGFR > 60 (>60) 03/15/18 05:50 Random Glucose 116 mg/dL (74-106) H 03/15/18 05:50 Lactic Acid 1.0 mmol/L (0.4-2.0) 03/12/18 18:20 Calcium 7.9 mg/dL (8.5-10.1) L 03/15/18 05:50 Phosphorus 2.4 mg/dL (2.5-4.9) L 03/15/18 05:50 Magnesium 2.1 mg/dL (1.8-2.4) 03/15/18 05:50 Total Bilirubin 0.7 mg/dL (0.2-1) 03/14/18 06:19 AST 24 U/L (15-37) 03/14/18 06:19 ALT 45 U/L (13-61) 03/14/18 06:19 Alkaline Phosphatase 85 U/L (45-117) 03/14/18 06:19 Creatine Kinase 553 IU/L (26-308) H 03/12/18 15:47 Creatine Kinase Index 4.9 % (0.0-5.0) 03/12/18 15:47 CK-MB (CK-2) 27.1 ng/mL (0.5-3.6) H 03/12/18 15:47 Total Protein 6.2 g/dl (6.4-8.2) L 03/14/18 06:19 Albumin 2.5 g/dl (3.4-5.0) L 03/14/18 06:19 Lipase 1342 U/L (73-393) H 03/12/18 15:44 Urine Color Ltyellow 03/12/18 23:59 Urine Appearance Slcloudy 03/12/18 23:59 Urine pH 5.0 (5.0-8.0) 03/12/18 23:59 Ur Specific Hackett 1.009 (1.010-1.035) L 03/12/18 23:59 Urine Protein 1+ (NEGATIVE) H 03/12/18 23:59 Urine Glucose (UA) Negative (NEGATIVE) 03/12/18 23:59 Urine Ketones Negative (NEGATIVE) 03/12/18 23:59 Urine Blood 3+ (NEGATIVE) H 03/12/18 23:59 Urine Nitrite Negative (NEGATIVE) 03/12/18 23:59 Urine Bilirubin Negative (<2.0 mg/dL) 03/12/18 23:59 Urine Urobilinogen Negative mg/dL (0.2-1.0) 03/12/18 23:59 Ur Leukocyte Esterase Trace (NEGATIVE) 03/12/18 23:59 Urine WBC (Auto) 12 /hpf (3-5) 03/12/18 23:59 Urine RBC (Auto) 2 /hpf (0-3) 03/12/18 23:59 Ur Epithelial Cells Rare /HPF (FEW) 03/12/18 23:59 Urine Crystals Cancelled 03/12/18 16:46 Calcium Oxalate Crystal Cancelled 03/12/18 16:46 Uric Acid Crystals Cancelled 03/12/18 16:46 Triple Phos Crystals Cancelled 03/12/18 16:46 Amorphous Phosphates Cancelled 03/12/18 16:46 Amorphous Urates Cancelled 03/12/18 16:46 Amorphous Sediment Cancelled 03/12/18 16:46 Urine Bacteria Rare /hpf (NONE SEEN) 03/12/18 23:59 Urine Casts Cancelled 03/12/18 16:46 Hyaline Casts Cancelled 03/12/18 16:46 Granular Casts Cancelled 03/12/18 16:46 Waxy Casts Cancelled 03/12/18 16:46 RBC Casts Cancelled 03/12/18 16:46 WBC Casts Cancelled 03/12/18 16:46 Urine Mucus Rare 03/12/18 23:59 Urine Other Cancelled 03/12/18 16:46 Urine Trichomonas Cancelled 03/12/18 16:46 Urine Yeast Cancelled 03/12/18 16:46 Ur Random Sodium 35 MMOL/L (40-220) L 03/12/18 18:49 Microbiology 03/12/18 20:45 Stool Salmonella/Shigella Culture - Preliminary Non Lactose Fermenting Gnb 03/12/18 20:45 Stool Campylobacter Culture - Final NO GROWTH OF CAMPYLOBACTER SPECIES OBTAINED 03/12/18 20:45 Stool Yersinia Culture - Final NO GROWTH OF YERSINIA SPECIES OBTAINED 03/12/18 20:45 Stool Vibrio Culture - Final NO GROWTH OF VIBRIO SPECIES OBTAINED 03/12/18 20:45 Stool Escherichia coli 0157 Culture - Final NO GROWTH OF E COLI 0157 OBTAINED 03/12/18 16:00 Throat Throat Culture - Final NO BETA HEMOLYTIC STREPTOCOCCI ISOLATED 03/12/18 16:00 Throat Group A Strep Rapid Antigen - Final 03/12/18 16:46 Urine - Urine Clean Catch Urine Culture - Final 03/12/18 17:45 Stool Clostridium difficile Antigen (SANDRITA) - Final 03/12/18 17:45 Stool Clostridium difficile Toxin Assay - Final IMAGING: -CT A/P without contrast: A Ordoñez catheter is seen in place. There is however marked urinary bladder distention. Correlate clinically in regards to possible catheter occlusion. Moderate bilateral hydronephrosis is noted - ? secondary to previously described urinary bladder overdistention. There is associated bilateral perirenal and retroperitoneal soft tissue stranding. Correlate with follow-up CT to document resolution. Marked prostate enlargement. Sigmoid diverticulosis is seen with equivocal mild pericolonic soft tissue stranding which could be on the basis of acute diverticulitis. Correlate clinically and with follow-up CT. Small amount of free intraperitoneal fluid. Cholelithiasis. -EKG: NORMAL SINUS RHYTHM, MINIMAL VOLTAGE CRITERIA FOR LVH, VR 82, QTc 455 HOSPITAL COURSE: Date of Admission:03/12/18 Date of Discharge: 03/15/18 72 y/o M with PMHx of Diverticular disease and BPH presents with a 1 week hx of Diarrhea and was admitted for Hyperkalemia and JUMANA. A Ordoñez catheter was placed in the ED, I&Os noted above. Imaging was done noted above. Nephrology was consulted and suggest IVF to match patients urine output. Patient experienced some diarrhea on admission for which stool studies did not have any growth to date (noted above). His Hyperkalemia and diarrhea resolved. Additionally, on admission patients BP was elevated at 186/85 however patient declined an hx of HTN. Patient was started on Hydralazine and Norvasc and his BP improved. Patient was discharged home with strict instructions to follow up with Urology ( Dr. Winn), Nephrology (Dr. Cannon), and PCP. Minutes to complete discharge: 40 Discharge Summary Reason For Visit: ACUTE RENAL FAILURE Current Active Problems ARF (acute renal failure) (Acute) Dehydration (Acute) Diarrhea (Acute) Hyperkalemia (Acute) Sore throat (Acute) Condition: Stable - Instructions Diet, Activity, Other Instructions: You presented to the hospital with vast amounts of diarrhea. You were found to have an acute kidney injury. Medication Changes: 1. Hydralazine 50mg Three times a day was added to your home meds 2. Norvasc 5mg daily was added to your home meds Follow up with the following physicians: 1. Urology: Dr. Winn on 03/23 @ 9:30 am; To further manage your Ordoñez catheter and CT scan findings (Hydronephrosis, Enlarged prostate) 2. Nephrology: Dr. Cannon in one week, please call to schedule follow up 3. PCP: Dr. Hahn in one week, please call to schedule follow up Follow up labs: 1. BMP, Mag, Phos in one week Please refrain from taking anymore laxatives until you follow up with your PCP You blood pressure was very high during your stay. Please continue to take Hydralazine and Norvasc as prescribed. Please follow up with your Ophthamologist. within a week period. You can further discuss this with the PCP. Please continue to monitor your blood pressure at home. Continue all your other medications as prescribed Please return to the ER if you have any signs or symptoms of chest pain, shortness of breath, uncontrollable fever, chills, nausea, vomiting, numbness, tingling, or weakness in any part of your body, changes in vision, or slurred speech. Please return to the ER if symptoms persist, worsen, or new symptoms arise. Referrals: Aster Rodas MD [Primary Care Provider] - 1 Week Dwayne Winn MD [Staff Physician] - 03/23/18 9:30 am (Dr. Winn's office will be mailing you paperwork that must be filled out and brought to the office) Ephraim Cannon MD [Staff Physician] - 1 Week Disposition: HOME - Home Medications Comprehensive Discharge Medication List: Ambulatory Orders Rosuvastatin Calcium [Crestor] 20 mg PO DAILY 03/12/18 Sildenafil Citrate [Viagra] 100 mg PO ASDIR 03/12/18 Tamsulosin HCl [Flomax -] 0.4 mg PO DAILY 03/12/18 Aspirin 81 mg PO DAILY 03/13/18 Amlodipine Besylate [Norvasc -] 5 mg PO DAILY #30 tablet 03/15/18 hydrALAZINE HCL [Apresoline -] 50 mg PO TID #90 tablet 03/15/18 This patient is new to me today: No Emergency Visit: Yes ED Registration Date: 03/12/18 Care time: The patient presented to the Emergency Department on the above date and was hospitalized for further evaluation of their emergent condition. Critical Care patient: No - Discharge Referral Referred to [facility] Med [facility].: No
--- NOTE | 2018-03-15 15:21 | PN ---
Teaching Attending Note Name of Resident: Kiarra Casiano ATTENDING PHYSICIAN STATEMENT I saw and evaluated the patient. I reviewed the resident's note and discussed the case with the resident. I agree with the resident's findings and plan as documented. SUBJECTIVE: Patient is feeling better with no acute distress, No urgency or frequency. OBJECTIVE: Vital Signs Temperature 97.9 F 03/15/18 09:43 Pulse Rate 64 03/15/18 09:43 Respiratory Rate 18 03/15/18 09:43 Blood Pressure 126/45 L 03/15/18 09:43 O2 Sat by Pulse Oximetry (%) 97 03/15/18 09:00 GENERAL: A&Ox3, NAD, lying comfortably HEAD: NCAT: EYES: PERRL, EOMI EARS, NOSE, THROAT: Oropharynx clear without exudates. MMM. NECK: No JVD ,LUNGS: Breath sounds equal, clear to auscultation bilaterally. No wheezes. HEART: Regular rate and rhythm, normal S1 and S2, Murmur at the RUSB ABDOMEN: Soft,NT to palpation, no distention , positive for BS, no guarding, no rebound EXTREMITIES: 2+ pulses, No calf tenderness. No peripheral edema. NEUROLOGICAL: Cranial nerves II-XII intact. Normal speech. Normal gait. PSYCHIATRIC: Cooperative. Good eye contact. Appropriate mood and affect. SKIN: Warm, dry, no rashes or lesions noted CBCD WBC 10.4 K/mm3 (4.0-10.0) H 03/15/18 05:50 RBC 4.09 M/mm3 (4.00-5.60) 03/15/18 05:50 Hgb 12.2 GM/dL (11.7-16.9) 03/15/18 05:50 Hct 37.2 % (35.4-49) 03/15/18 05:50 MCV 91.0 fl (80-96) 03/15/18 05:50 MCHC 32.9 g/dl (32.0-35.9) 03/15/18 05:50 RDW 14.5 % (11.9-15.9) 03/15/18 05:50 Plt Count 271 K/MM3 (134-434) 03/15/18 05:50 MPV 6.7 fl (7.5-11.1) L 03/15/18 05:50 CMP Sodium 149 mmol/L (136-145) H 03/15/18 05:50 Potassium 3.6 mmol/L (3.5-5.1) 03/15/18 05:50 Chloride 114 mmol/L (98-107) H 03/15/18 05:50 Carbon Dioxide 27 mmol/L (21-32) 03/15/18 05:50 Anion Gap 9 MMOL/L (8-16) 03/15/18 05:50 BUN 11 mg/dL (7-18) 03/15/18 05:50 Creatinine 0.8 mg/dL (0.55-1.3) 03/15/18 05:50 Creat Clearance w eGFR > 60 (>60) 03/15/18 05:50 Random Glucose 116 mg/dL (74-106) H 03/15/18 05:50 Calcium 7.9 mg/dL (8.5-10.1) L 03/15/18 05:50 Total Bilirubin 0.7 mg/dL (0.2-1) 03/14/18 06:19 AST 24 U/L (15-37) 03/14/18 06:19 ALT 45 U/L (13-61) 03/14/18 06:19 Alkaline Phosphatase 85 U/L (45-117) 03/14/18 06:19 Total Protein 6.2 g/dl (6.4-8.2) L 03/14/18 06:19 Albumin 2.5 g/dl (3.4-5.0) L 03/14/18 06:19 CARDIAC ENZYMES Creatine Kinase 553 IU/L (26-308) H 03/12/18 15:47 Home Medications Medication Instructions Recorded Rosuvastatin Calcium [Crestor] 20 mg PO DAILY 03/12/18 Sildenafil Citrate [Viagra] 100 mg PO ASDIR 03/12/18 Tamsulosin HCl [Flomax -] 0.4 mg PO DAILY 03/12/18 Aspirin 81 mg PO DAILY 03/13/18 Amlodipine Besylate [Norvasc -] 5 mg PO DAILY #30 tablet 03/15/18 hydrALAZINE HCL [Apresoline -] 50 mg PO TID #90 tablet 03/15/18 ASSESSMENT AND PLAN: 72 y/o M with PMHx of Diverticular disease and BPH presents with a 1 week hx of Diarrhea found to have Hyperkalemia and JUMANA #JUMANA : Due to obstructive Uropathy 18.6-->18.4-->10.9-->1.1-->0.8 today ,On Tamsulosin, as per urology Dr. Adhikari, to go home with segal leg bag and follow with him as an outpatient. Given an appointment for this coming Thursday. #Acute Hyperkalemia : resolved. Nephrology (Dr. Cannon) #Severe HTN: Hydralazine 50mg PO TID, amlodipine, #Diarrhea improved DVT discharge patient home with follow up visit with .
== END 2018-03-15 14:43 | disposition home or self-care (01) | DRG 683 ==
LOC: JER 15:21 → JERBED 19:10 → J4S 22:37
PROVIDERS: ADMIT Internal Medicine; ATTEND Internal Medicine
DX: N17.9 Acute kidney failure, unspecified (principal); E87.1 Hypo-osmolality and hyponatremia; I16.1 Hypertensive emergency; R18.8 Other ascites; E87.0 Hyperosmolality and hypernatremia; R19.7 Diarrhea, unspecified; E86.0 Dehydration; E87.5 Hyperkalemia; N40.0 Benign prostatic hyperplasia without lower urinary tract symptoms; K57.90 Diverticulosis of intestine, part unspecified, without perforation or abscess without bleeding; R33.9 Retention of urine, unspecified; K80.20 Calculus of gallbladder without cholecystitis without obstruction; N13.30 Unspecified hydronephrosis
CPT/HCPCS: 36415; 36600; 74176-TC; 80048; 80053; 81003; 81015; 82550; 82553; 82803; 83605; 83690; 83735; 84100; 84300; 85025; 85027; 85610; 87045; 87046; 87070; 87086; 87186; 87324; 87430; 87449; 93005; 93010; 99285-25; J1644; J7030

== ENCOUNTER 2018-03-23 21:13 | Emergency (ER) | payer OTHER ==
[2018-03-23 21:19] VITALS: BP 129/68; PULSE 99; TEMP 97.6; BMI 30.5
--- NOTE | 2018-03-23 21:19 | PDOC ---
Rapid Medical Evaluation Chief Complaint: Urinary Problem Time Seen by Provider: 03/23/18 21:16 Medical Evaluation: Allergies Allergy/AdvReac Type Severity Reaction Status Date / Time No Known Allergies Allergy Verified 03/12/18 15:38 03/23/18 21:17 I have performed a brief in person evaluation of this patient. This patient presents with a CC of: urinary retention Pt is a 72 Yo male who states that he had his catheter removed this morning and has urinary retention. PE: Skin: Clear Lungs: Clear Heart: RRR Abd: No pain MS: Moves all extremities without difficulty. Neuro: Alert and oriented Psych: Appropriate affect I have ordered the following: UA, urine culture The patient will proceed to the ED for further evaluation. Discharge Disposition - Diagnosis Urinary retention - Referrals Referrals: Aster Rodas MD [Primary Care Provider] - - Patient Instructions - Post Discharge Activity
--- NOTE | 2018-03-23 23:04 | PDOC ---
History of Present Illness <Justin Serrato - Last Filed: 03/24/18 01:33> - History of Present Illness Initial Comments: 03/23/18 23:02 The patient is a 72 year old male who presents with acute urinary retention. Patient has had a catheter in place for the last 1 week following a hospitalization at our facility for Acute Renal Failure. States he visited his urologist, Dr. Putnam, this morning and had the cathether removed. Patient drank water all day but didn't urinate. He started to feel bladder pressure prompting him to visit the ED. The patient denies chest pain, shortness of breath, abdominal pain, nausea/ vomiting, diarrhea/constipation. NKDA Surgical: none reported Social: denies toxic habits PMD: Dr. Kj Turner M.D. <Nelia Tracey - Last Filed: 03/24/18 02:38> - General Chief Complaint: Urinary Problem Stated Complaint: Urinary Problem Time Seen by Provider: 03/23/18 21:16 Past History <Justin Serrato - Last Filed: 03/24/18 01:33> - Past Medical History COPD: No Disorders: Yes (ED) Hypercholesterolemia: Yes - Surgical History GI Surgery: Yes (colonoscopy 2008) - Suicide/Smoking/Psychosocial Hx Smoking History: Never smoked Have you smoked in the past 12 months: No Hx Alcohol Use: No Drug/Substance Use Hx: No Substance Use Type: None Hx Substance Use Treatment: No <Nelia Tracey - Last Filed: 03/24/18 02:38> - Past Medical History Allergies/Adverse Reactions: Allergies Allergy/AdvReac Type Severity Reaction Status Date / Time No Known Allergies Allergy Verified 03/23/18 21:19 Home Medications: Ambulatory Orders Rosuvastatin Calcium [Crestor] 20 mg PO DAILY 03/12/18 Sildenafil Citrate [Viagra] 100 mg PO ASDIR 03/12/18 Tamsulosin HCl [Flomax -] 0.4 mg PO DAILY 03/12/18 Aspirin 81 mg PO DAILY 03/13/18 Amlodipine Besylate [Norvasc -] 5 mg PO DAILY #30 tablet 03/15/18 hydrALAZINE HCL [Apresoline -] 50 mg PO TID #90 tablet 03/15/18 Review of Systems - Review of Systems Constitutional: No: Chills, Fever HEENTM: No: Blurred Vision, Double Vision Respiratory: No: Cough, Shortness of Breath Cardiac (ROS): No: Chest Pain, Lightheadedness, Palpitations, Syncope ABD/GI: No: Constipated, Diarrhea, Nausea, Vomiting : No: Burning, Dysuria <Nelia Tracey - Last Filed: 03/24/18 02:38> *Physical Exam - Vital Signs Last Vital Signs Temp Pulse Resp BP Pulse Ox 97.6 F 99 H 18 129/68 99 03/23/18 21:16 03/23/18 21:16 03/23/18 21:16 03/23/18 21:16 03/23/18 21:16 <Justin Serrato - Last Filed: 03/24/18 01:33> - Vital Signs Last Vital Signs Temp Pulse Resp BP Pulse Ox 97.6 F 99 H 18 129/68 99 03/23/18 21:16 03/23/18 21:16 03/23/18 21:16 03/23/18 21:16 03/23/18 21:16 - Physical Exam General Appearance: Yes: Nourished, Appropriately Dressed HEENT: positive: Normal Voice, Hearing Grossly Normal Neck: positive: Trachea midline, Supple Respiratory/Chest: positive: Lungs Clear, Normal Breath Sounds Cardiovascular: positive: S1, S2 Gastrointestinal/Abdominal: positive: Normal Bowel Sounds, Soft. negative: Distended, Guarding, Tenderness, Hernia, Mass Musculoskeletal: positive: CVA Tenderness (L). negative: CVA Tenderness (R) Extremity: positive: Normal Capillary Refill, Normal Inspection Integumentary: positive: Normal Color, Dry, Warm Neurologic: positive: Fully Oriented, Alert <Nelia Tracey - Last Filed: 03/24/18 02:38> Medical Decision Making - Medical Decision Making 03/23/18 23:08 72 year old male with obstructive uropathy. S/p recent catherization. 1.7 L output in ED. Concern for post obstructive diuresis --> dehydration. Will monitor UOP and hydrate. No UA/UC, labs as they are unlikely to change clinical management. Patient's urologist, Dr. Dawson begum. 03/23/18 23:30 Case d/w Dr. Torres (urology mason tender restoration labor). S/p diuresis, patient safe for d/c home can follow up in office tomorrow a.m. 03/23/18 23:44 03/24/18 01:31 S/p 1 L IV hydration Patient ambulatory, improved, requesting D/C home. At this time patient safe for d/c home given close urology follow-up and improved clinical condition. I discussed the physical exam findings, ancillary test results and final diagnoses with the patient. I answered all of the patient's questions. The patient was satisfied with the care received and felt comfortable with the discharge plan and treatment plan. The patient will return to the Emergency Department with any new, persistent or worsening symptoms. <Nelia Tracey - Last Filed: 03/24/18 02:38> *DC/Admit/Observation/Transfer - Discharge Dispostion Decision to Admit order: No - Attestations Physician Attestion: 03/24/18 01:34 I, Dr. Justin Serrato MD, attest that this document has been prepared under my direction and personally reviewed by me in its entirety. I further attest, that it accurately reflects all work, treatment, procedures and medical decision -making performed by me. <Justin Serrato - Last Filed: 03/24/18 01:33> <Nelia Tracey - Last Filed: 03/24/18 02:38> Diagnosis at time of Disposition: Urinary retention - Discharge Dispostion Disposition: HOME Condition at time of disposition: Stable - Referrals Referrals: Aster Rodas MD [Primary Care Provider] - - Patient Instructions Printed Discharge Instructions: DI for Urinary Retention in Men Additional Instructions: As discussed, follow up with Dr. Winn at 9am in the morning. Return to the emergency department if you have any new, worsening, or concerning symptoms. - Post Discharge Activity
[2018-03-23] MEDS ORDERED: SODIUM CHLORIDE 0.9% 500 ML INFUS.BAG IV ONE (23:46)
--- NOTE | 2018-03-24 00:36 | PDOC ---
Attending Attestation - Resident Resident Name: Nelia Tracey - ED Attending Attestation I have performed the following: I have examined & evaluated the patient, The case was reviewed & discussed with the resident, I agree w/resident's findings & plan, Exceptions are as noted - HPI HPI: 03/24/18 00:31 The patient is a 72 year old male, with no significant past medical history, who presents to the emergency department with urinary retention. As per patient , he had his catheter removed earlier today by Dr. Winn after being in place for a week. He notes urinary retention since its removal. He has been eating and drinking normally, but states he has been drinking a lot of water to go to the bathroom. He called Dr. Winn multiple times without hearing back , [facility]. Segal placed on arrival, total UOP 1.7L clear urine so far with significant relief of symptoms for pt. He denies any recent fevers, chills, headache or dizziness. He denies any recent nausea, vomit, diarrhea or constipation. He denies any recent chest pain or shortness of breath. Allergies: NKDA Primary Care Physician: Dr. Kj Turner - Physicial Exam PE: 03/24/18 00:33 agree with resident exam - Medical Decision Making 03/24/18 00:34 72yo M presents with failed trail of void after segal removal this AM. 1.7L UOP since placement, likely as pt has been drinking excessively in attempt to void. Will give pt 1L NS as there is likely element of post obstructive diuresis. In the meantime will reassess UOP. Case discussed with Dr. Torres by Dr. Tracey, pt can be seen in the AM tomorrow for f/u. Will hold off on labs/UA as they are unlikely to waste/materials exchange specialist, pt has no infectious sxs and urine is clear. 03/24/18 01:30 UOP slowed down, total output 1.7L Pt s/p 1L NS IV Feels well REquests DC home Ambulating in ED Has appt with Dr. Torres at 9am tomorrow I discussed the physical exam findings, ancillary test results and final diagnoses with the patient. I answered all of the patient's questions. The patient was satisfied with the care received and felt comfortable with the discharge plan and treatment plan. The patient will call their primary care physician within 24 hours to arrange follow-up and will return to the Emergency Department with any new, persistent or worsening symptoms.
== END 2018-03-24 01:35 | disposition home or self-care (01) ==
LOC: JER 21:13
PROC: 0T9B70Z Drainage of Bladder with Drainage Device, Via Natural or Artificial Opening (ICD-10-PCS; principal; 2018-03-23)
DX: R33.8 Other retention of urine (principal); N52.9 Male erectile dysfunction, unspecified; I10 Essential (primary) hypertension
CPT/HCPCS: 51702; 99283-25

== ENCOUNTER 2018-04-15 08:29 | Day surgery (SDC) | payer OTHER ==
[2018-04-13 17:12] VITALS: BMI 28.2
[2018-04-15] MEDS ORDERED: MIDAZOLAM HCL 2 MG/2 ML SINGLE DOSE VIAL ONE (09:48)
[2018-04-15] MEDS ORDERED: BUPIVACAINE HCL/PF 0.5% (5MG/ML) 10 ML VIAL ONE (09:54)
[2018-04-15] MEDS ORDERED: LIDOCAINE HCL 2% 100 MG/5 ML DISP.SYRIN ONE (10:00)
[2018-04-15] MEDS ORDERED: ceFAZolin SODIUM 1 GM VIAL ONE (10:15)
[2018-04-15] MEDS ORDERED: ceFAZolin SODIUM 1 GM VIAL IVPB ONE (10:16)
[2018-04-15] MEDS ORDERED: LACTATED RINGERS SOLUTION 1,000 ML IV SCH (11:15)
[2018-04-15] MEDS ORDERED: ONDANSETRON 4 MG/2 ML VIAL IVPUSH PRN (11:15)
[2018-04-15] MEDS ORDERED: PROMETHAZINE HCL 25 MG/1 ML VIAL IVPB PRN (11:15)
[2018-04-15] MEDS ORDERED: oxyCODONE HCL 5 MG TABLET PO PRN (11:19)
--- NOTE | 2018-04-15 11:22 | OP ---
Operative Note - Note: Operative Date: 04/15/18 Pre-Operative Diagnosis: BPH/retention Operation: Bipolar TURVP/TURP Post-Operative Diagnosis: Same as Pre-op Surgeon: Dwayne Winn Anesthesiologist/JOURNALISM TEACHER: Dustin Acosta Anesthesia: Spinal Specimens Removed: prostate chips Drains & Tubes with Location: 24fr 3 way Operative Report Dictated: Yes
[2018-04-15] MEDS ORDERED: DEXTROSE 5%-0.45% SALINE 1,000 ML IV SCH (11:30)
--- NOTE | 2018-04-15 12:10 | OP ---
DATE OF OPERATION: 04/15/2018 PREOPERATIVE DIAGNOSIS: Benign prostatic hyperplasia with urinary retention. POSTOPERATIVE DIAGNOSIS: Benign prostatic hyperplasia with urinary retention. PROCEDURE: Bipolar transurethral vaporization and resection of the prostate. SURGEON: Sarah Morgan MD INDICATION: Patient is a 72-year-old male with BPH, and urinary retention failed multiple voiding trials despite maximum medical therapy. After reviewing treatment options, he elected to undergo bipolar TURP and TURVP. Risks, benefits, and alternatives were discussed including risk of bleeding, infection, impotence, incontinence, stricture formation, persistent retention, potential need for additional procedures, potential for injury to adjacent organs. Informed consent was obtained. DESCRIPTION OF PROCEDURE: Patient was taken to the OR and placed supine on the table. After cardiac monitoring was administered and general anesthesia was established, he was prepped and draped in dorsal lithotomy position. A 26-sheath resectoscope was inserted into the urethra without difficulty. Anterior urethra was normal. The prostatic urethra was 4 cm and visually occlusive with obstructing lateral lobes and median lobes. Bilateral ureteral orifices were seen in normal anatomic position. There were no bladder tumors. At this point with the resectoscope, situated just past the verumontanum, the prostate tissue was resected circumferentially starting at the bladder neck and median bar and then lateral lobes. Followed by resection, the button loop was used to cauterize the tissue. All prostate chips were removed with the [place] evacuator. At the completion of the procedure, with the resectoscope situated just past the verumontanum, a wide-open channel was seen going to the bladder. There was no resection within 1 cm of the verumontanum to minimize the chance of incontinence. Resectoscope was then removed and then a 24-Mongolian Ordoñez was then placed to straight drainage. [place]-tinged urine was retrieved. The patient was woken from anesthesia and transferred to the recovery room in stable condition. There were no complications. Estimated blood loss was minimal. SARAH MORGAN M.D. [id number]
[2018-04-15 16:49] VITALS: BP 139/58; PULSE 60; TEMP 97.5
--- NOTE | 2018-04-19 17:44 | PATH ---
Surgical Pathology Report Patient Name: BLAZE MOODY [facility]. Rec. #: [id number] /Age/Gender: 1945 (Age: 72) / M Account: [id number] Location: [facility] SURGICAL Taken: 04/15/2018 Received: 04/15/2018 Reported: 04/19/2018 Physicians: Dwayne Winn M.D. Specimen(s) Received PROSTATE CHIPS Clinical History BPH, urine retention Final Diagnosis PROSTATE CHIPS, TRANSURETHRAL RESECTION OF PROSTATE: BENIGN PROSTATIC TISSUE WITH ACUTE AND CHRONIC INFLAMMATION, CYSTIC CHANGES, GLANDULAR AND STROMAL HYPERPLASIA. UROTHELIAL MUCOSA WITH ACUTE AND CHRONIC CYSTITIS. Electronically Signed Shital Little M.D. Gross Description Received in formalin labeled "prostate chips," is a 5 g, 0.5 x 5.0 x 0.5 cm aggregate of goodrich, firm to rubbery portions of tissue, consistent with prostate chips. The specimen is entirely submitted in 7 cassettes. 04/16/2018 saudi04/16/2018
== END 2018-04-15 14:45 | disposition home or self-care (01) ==
LOC: JASU-SURG 08:29
PROVIDERS: ATTEND Urology
PROC: 0V508ZZ Destruction of Prostate, Via Natural or Artificial Opening Endoscopic (ICD-10-PCS; principal; 2018-04-15 10:00)
DX: N40.1 Benign prostatic hyperplasia with lower urinary tract symptoms (principal); R33.8 Other retention of urine
CPT/HCPCS: 88305-TC; 94760

== ENCOUNTER 2018-04-20 22:03 | Emergency (ER) | payer OTHER ==
[2018-04-20 22:23] VITALS: TEMP 98.4; BMI 29.1
--- NOTE | 2018-04-20 22:34 | PDOC ---
*Physical Exam - Vital Signs Last Vital Signs Temp Pulse Resp BP Pulse Ox 98.4 F 85 22 H 181/97 H 100 04/20/18 22:18 12 22:18 04/20/18 22:18 04/20/18 22:18 04/20/18 22:18 Medical Decision Making - Medical Decision Making 04/20/18 22:33 Mr Middleton is s 72 yo M who presents to the ER in urinary retention s/p segal cathether removal today by his urologist He called his urologist who recommended that he come in to the ER for segal cathether placement Pt seen by Midlevel Provider under my direct supervision Pt interviewed and examined I agree with plan as outlined by Midlevel Provider *DC/Admit/Observation/Transfer Diagnosis at time of Disposition: Urinary retention due to benign prostatic hyperplasia - Discharge Dispostion Disposition: HOME Condition at time of disposition: Improved - Referrals Referrals: Aster Rodas MD [Primary Care Provider] - 3 days Dwayne Winn MD [Staff Physician] - Call tomorrow - Patient Instructions Printed Discharge Instructions: DI for Urinary Retention in Men Additional Instructions: Thank you for choosing [facility]. It was a pleasure taking care of you. You were seen here for urinary retention for which you had a Segal placed. Please follow-up with your urologist tomorrow. Return to the Emergency Department if your symptoms worsen or persist, you have fever, abdominal pain, blood in urine, unable to produce any urine or other concerning symptoms. - Post Discharge Activity
--- NOTE | 2018-04-20 22:46 | PDOC ---
History of Present Illness - General Chief Complaint: Urinary Problem Stated Complaint: Urinary Problem Time Seen by Provider: 04/20/18 22:09 History Source: Patient Exam Limitations: No Limitations Past History - Past Medical History Allergies/Adverse Reactions: Allergies Allergy/AdvReac Type Severity Reaction Status Date / Time No Known Allergies Allergy Verified 04/13/18 17:19 Home Medications: Ambulatory Orders Rosuvastatin Calcium [Crestor] 20 mg PO DAILY 03/12/18 Tamsulosin HCl [Flomax -] 0.4 mg PO DAILY 03/12/18 Amlodipine Besylate [Norvasc -] 5 mg PO DAILY #30 tablet 03/15/18 hydrALAZINE HCL [Apresoline -] 50 mg PO TID #90 tablet 03/15/18 Aspirin Coated [Ecotrin -] 81 mg PO DAILY 04/13/18 Anemia: No Asthma: No Cancer: No Cardiac Disorders: No CVA: No COPD: No CHF: No Dementia: No Diabetes: No GI Disorders: No Disorders: No HTN: No Hypercholesterolemia: Yes Liver Disease: No Seizures: No Thyroid Disease: No Other medical history: enlarged prostate - Surgical History GI Surgery: Yes (colonoscopy 2008) - Suicide/Smoking/Psychosocial Hx Smoking History: Never smoked Have you smoked in the past 12 months: No Information on smoking cessation initiated: No Hx Alcohol Use: No Drug/Substance Use Hx: No Substance Use Type: Alcohol Hx Substance Use Treatment: No Review of Systems - Review of Systems Constitutional: No: Chills, Fever Respiratory: No: Shortness of Breath Cardiac (ROS): No: Chest Pain : No: Dysuria, Hematuria *Physical Exam - Vital Signs Last Vital Signs Temp Pulse Resp BP Pulse Ox 98.4 F 85 22 H 181/97 H 100 04/20/18 22:18 04/20/18 22:18 04/20/18 22:18 04/20/18 22:18 04/20/18 22:18 - Physical Exam General Appearance: No: Apparent Distress Respiratory/Chest: positive: Lungs Clear, Normal Breath Sounds. negative: Respiratory Distress Cardiovascular: positive: Regular Rhythm, Regular Rate, S1, S2. negative: Murmur Gastrointestinal/Abdominal: positive: Normal Bowel Sounds, Soft. negative: Tender, Distended, Guarding, Rebound Neurologic: positive: Fully Oriented, Alert, Normal Mood/Affect Moderate Sedation - Procedure Monitoring Vital Signs: Procedure Monitoring Vital Signs Temperature 98.4 F 04/20/18 22:18 Pulse Rate 85 04/20/18 22:18 Respiratory Rate 22 H 04/20/18 22:18 Blood Pressure 181/97 H 04/20/18 22:18 O2 Sat by Pulse Oximetry (%) 100 04/20/18 22:18 Medical Decision Making - Medical Decision Making 72 y/o M hx of BPH s/p TURP on 04/[address] Dwayne Winn presents for urinary retention. Patient saw his urologist who removed his segal today around 9 AM, but patient had been unable to void the whole day since Segal removal. He contacted his urologist again who advised him to come to ED. When patient was seen, he had already Segal placed, which had drained 1450 mL of clear yellow urine. Patient mentions feeling much better. Patient's abdomen is nondistended on exam. Denies fever, chills, sob, cp, abd pain, n/v, hematuria. Patient states he can follow-up with his urologist tomorrow. Stable for discharge 04/20/18 22:44 *DC/Admit/Observation/Transfer Diagnosis at time of Disposition: Urinary retention due to benign prostatic hyperplasia - Discharge Dispostion Disposition: HOME Condition at time of disposition: Improved - Referrals Referrals: Aster Rodas MD [Primary Care Provider] - 3 days Dwayne Winn MD [Staff Physician] - Call tomorrow - Patient Instructions Printed Discharge Instructions: DI for Urinary Retention in Men Additional Instructions: Thank you for choosing [facility]. It was a pleasure taking care of you. You were seen here for urinary retention for which you had a Segal placed. Please follow-up with your urologist tomorrow. Return to the Emergency Department if your symptoms worsen or persist, you have fever, abdominal pain, blood in urine, unable to produce any urine or other concerning symptoms. - Post Discharge Activity
[2018-04-20 23:19] VITALS: BP 176/82; PULSE 82
== END 2018-04-20 23:42 | disposition home or self-care (01) ==
LOC: JER 22:03
PROC: 0T9B70Z Drainage of Bladder with Drainage Device, Via Natural or Artificial Opening (ICD-10-PCS; principal; 2018-04-20)
DX: N40.1 Benign prostatic hyperplasia with lower urinary tract symptoms (principal); R33.8 Other retention of urine; Z98.890 Other specified postprocedural states; E78.00 Pure hypercholesterolemia, unspecified
CPT/HCPCS: 51702; 99282-25

== ENCOUNTER → 2018-04-20 | Emergency (ER) | payer OTHER | END | disposition left against medical advice (07) | LOC: JER 22:00 | DX: Z53.21 Procedure and treatment not carried out due to patient leaving prior to being seen by health care provider (principal) ==

== ENCOUNTER 2018-06-17 09:37 | Day surgery (SDC) | payer OTHER ==
[2018-06-16 09:01] VITALS: BMI 28.5
[~2018-06-17 09:37] MED LIST: ceFAZolin SODIUM 1 GM VIAL IVPB ONE
[2018-06-17] MEDS ORDERED: MIDAZOLAM HCL 2 MG/2 ML SINGLE DOSE VIAL ONE ×2 (12:09→12:28)
[2018-06-17] MEDS ORDERED: GENTAMICIN 80MG PREMIX BAG IVPB ONE (12:10)
[2018-06-17] MEDS ORDERED: ceFAZolin SODIUM 1 GM VIAL IVPB ONE (12:11)
[2018-06-17] MEDS ORDERED: GENTAMICIN SO4 80 MG/2 ML VIAL ONE ×2 (12:24→12:31)
[2018-06-17] MEDS ORDERED: PROPOFOL 20 ML ONE (12:42)
[2018-06-17] MEDS ORDERED: oxyCODONE HCL 5 MG TABLET PO PRN (13:25)
[2018-06-17] MEDS ORDERED: ONDANSETRON 4 MG/2 ML VIAL IVPUSH PRN (13:35)
[2018-06-17] MEDS ORDERED: LACTATED RINGERS SOLUTION 1,000 ML IV SCH (13:45)
--- NOTE | 2018-06-17 14:04 | OP ---
DATE OF OPERATION: 06/17/2018 PREOPERATIVE DIAGNOSIS: Benign prostatic hypertrophy with urinary retention. POSTOPERATIVE DIAGNOSIS: Benign prostatic hypertrophy with urinary retention. PROCEDURE: Repeat transurethral vaporization and resection of the prostate. SURGEON: Sarah Morgan MD INDICATIONS: Patient is a 72-year-old male with a history of BPH and large prostate status post bipolar TURP/TURVP approximately 2 months ago; however, he has persistent urinary retention. After reviewing treatment options, patient elected to undergo repeat resection and vaporization in an effort to promote normal urination. Risks, benefits, and alternatives were discussed including chance of impotence, incontinence, or erectile dysfunction, stricture formation, potential injury to adjacent organs, potential need for additional procedures. DESCRIPTION OF PROCEDURE: After informed consent was obtained, the patient was taken to the OR and placed supine on the operating room table. He was given spinal anesthetic. He was prepped and draped in dorsal lithotomy position. He was given 2 g of Ancef and 1 mL gentamicin. The resectoscope was inserted into the urethra without difficulty. Anterior urethra was normal. Prostatic urethra had an open bladder neck. There was some residual lateral tissue. Bilateral ureteral orifices were seen in normal anatomic position. Using a combination of resection and vaporization, the lateral ureteral tissues were resected to the level of the verumontanum, but not past the verumontanum. Resection was carried out circumferentially until a wide open channel was created with situated right past the verumontanum, wide open channel was noted into the bladder. All the prostate chips were removed with Ellik evacuator and sent to Pathology for analysis. All bleeding sites were fulgurated. No evidence of any injury to the ureters. Resectoscope was then removed, and then, a 24-Yoruba Ordoñez was then placed to straight drainage. [place]-tinged urine was retrieved. Patient was awoken from anesthesia and transferred to recovery room in stable condition. There were no complications. Estimated blood loss was 50 mL. SARAH MORGAN M.D. [id number]
[2018-06-17] MEDS: DEXTROSE 5%-0.45% SALINE 1,000 ML IV SCH (16:55)
[2018-06-18] MEDS: DEXTROSE 5%-0.45% SALINE 1,000 ML IV SCH (01:19)
[2018-06-18 09:24] VITALS: TEMP 98.4
--- NOTE | 2018-06-18 09:37 | PN ---
Progress Note (short form) - Note Progress Note: S/P TURP Patient has not been able to void segal replaced with clear urine output. discharge home with segal to leg bag.
[2018-06-18 11:43] VITALS: BP 166/92; PULSE 92
--- NOTE | 2018-06-22 17:35 | PATH ---
Surgical Pathology Report Patient Name: BLAZE MOODY [facility]. Rec. #: [id number] /Age/Gender: 1945 (Age: 72) / M Account: [id number] Location: [facility] SURGICAL Taken: 06/17/2018 Received: 06/18/2018 Reported: 06/22/2018 Physicians: Dwayne Winn M.D. Specimen(s) Received PROSTATE CHIPS Clinical History Retention of urine Final Diagnosis PROSTATE, TRANSURETHRAL RESECTION OF PROSTATE: BENIGN PROSTATIC TISSUE WITH ACUTE AND CHRONIC INFLAMMATION, CYSTIC CHANGES, GLANDULAR AND STROMAL HYPERPLASIA. UROTHELIAL MUCOSA WITH CYSTITIS CYSTICA AND GLANDULARIS. Electronically Signed Shital Little M.D. Gross Description Received in formalin labeled "prostate tissue," is a 6 g, 7.5 x 6.0 x 0.4 cm aggregate of multiple goodrich, irregular, firm to rubbery portions of tissue, consistent with prostate chips. The specimen is entirely submitted in 8 cassettes. /06/18/2018 saudi06/18/2018
== END 2018-06-18 11:58 | disposition home or self-care (01) ==
LOC: JASU-SURG 09:37 → J6S 16:45 → JASU-SURG 06-18 11:58
PROVIDERS: ATTEND Urology
PROC: 0V508ZZ Destruction of Prostate, Via Natural or Artificial Opening Endoscopic (ICD-10-PCS; principal; 2018-06-17 11:00)
DX: N40.1 Benign prostatic hyperplasia with lower urinary tract symptoms (principal); R33.8 Other retention of urine
CPT/HCPCS: 88305-TC; 94760

== ENCOUNTER 2021-07-19 19:33 | Emergency (ER) | payer OTHER ==
[2021-07-19 19:40] VITALS: TEMP 98.2; BMI 29.8
[2021-07-19 20:43] LABS: EPI CELLS 7 /uL (0-25.1); HYALINE CASTS 2 /uL (0-3.1); URINE APPEARANCE TURBID; URINE BILIRUBIN 1+ (NEGATIVE); URINE COLOR RED; URINE GLUCOSE (UA) NEGATIVE (NEGATIVE); URINE KETONE NEGATIVE (NEGATIVE); URINE LEUK ESTERASE 2+ (NEGATIVE); URINE NITRITE POSITIVE (NEGATIVE); URINE PROTEIN 2+ (NEGATIVE); URINE RBC 25327 /uL (0-23.9); URINE UROBILINOGEN 0.2 mg/dL (0.2-1.0); URINE WBC 78 /uL (0-25.8)
[2021-07-19 21:12] LABS: BASO % 1.2 % (0-2.0); EOS % 1.6 % (0-4.5); HEMATOCRIT 41.1 % (35.4-49); LYMPH % 22.7 % (8-40); MCH 30.9 pg (25.7-33.7); MEAN CELL VOLUME 90.7 fl (80-96); MEAN PLT VOLUME 7.6 fl (7.5-11.1); MONO % 9.2 % (3.8-10.2); NEUT % 65.3 % (42.8-82.8); PLATELET COUNT 269 10^3/uL (134-434); RBC 4.53 M/mm3 (4.00-5.60); RDW 14.8 % (11.9-15.9); WHITE BLOOD COUNT 7.8 K/mm3 (4.0-10.0)
[2021-07-19] MEDS ORDERED: CEFTRIAXONE 1 GM in DEXTROSE 5%-WATER - 100 ML IVPB ONE (21:26)
[2021-07-19 21:49] LABS: BLOOD UREA NITROGEN 23.6 mg/dL (7-18); CALCIUM 8.9 mg/dL (8.5-10.1)
[2021-07-19 21:50] LABS: ALBUMIN 3.7 g/dl (3.4-5.0)
[2021-07-19 21:53] LABS: CREATININE 1.2 mg/dL (0.55-1.3)
[2021-07-19] MEDS ORDERED: CEFTRIAXONE 1 GM/50 ML BAG ONE (21:53)
[2021-07-19 21:54] LABS: BILIRUBIN,TOTAL 0.8 mg/dL (0.2-1); TOT PROT 7.1 g/dl (6.4-8.2)
[2021-07-19 22:08] LABS: URINE BACTERIA 4 /uL (0-1359)
[2021-07-19 22:30] LABS: INR 1.09 (0.83-1.09); PROTHROMBIN TIME (PATIENT) 12.5 SEC (9.7-13.0)
[2021-07-19 22:32] LABS: ACTIVATED PTT 30.8 SECONDS (25.2-36.5)
[2021-07-19 23:01] VITALS: BP 138/79; PULSE 56
== END 2021-07-19 23:40 | disposition home or self-care (01) ==
LOC: JER 19:33
PROC: 3E033GC Introduction of Other Therapeutic Substance into Peripheral Vein, Percutaneous Approach (ICD-10-PCS; principal; 2021-07-19)
DX: N39.0 Urinary tract infection, site not specified (principal); R31.9 Hematuria, unspecified
CPT/HCPCS: 36415; 76775-TC; 80053; 81003; 85025; 85610; 85730; 87086; 99284-25

== ENCOUNTER 2022-05-30 13:04 | Emergency (ER) | payer OTHER ==
[2022-05-30 13:18] VITALS: TEMP 98.1; BMI 27.8
[2022-05-30 14:41] LABS: BASO % 0.6 % (0-2.0); EOS % 1.3 % (0-4.5); HEMATOCRIT 43.1 % (35.4-49); HEMOGLOBIN 14.3 GM/dL (11.7-16.9); LYMPH % 24.2 % (8-40); MCH 30.6 pg (25.7-33.7); MCHC 33.3 g/dl (32.0-35.9); MEAN CELL VOLUME 91.8 fl (80-96); MEAN PLT VOLUME 7.2 fl (7.5-11.1); NEUT % 61.9 % (42.8-82.8); PLATELET COUNT 264 10^3/uL (134-434); RBC 4.69 M/mm3 (4.00-5.60); RDW 14.8 % (11.9-15.9); WHITE BLOOD COUNT 7.2 K/mm3 (4.0-10.0)
[2022-05-30 14:56] LABS: INR 1.13 (0.83-1.09)
[2022-05-30 14:59] LABS: ACTIVATED PTT 30.2 SECONDS (25.2-36.5)
[2022-05-30 15:02] LABS: CALCIUM 9.6 mg/dL (8.5-10.1)
[2022-05-30 15:03] LABS: BLOOD UREA NITROGEN 16.1 mg/dL (7-18); MAGNESIUM 2.3 mg/dL (1.8-2.4)
[2022-05-30 15:06] LABS: ALBUMIN 3.9 g/dl (3.4-5.0); PHOSPHOROUS 3.2 mg/dL (2.5-4.9)
[2022-05-30 15:07] LABS: BILIRUBIN,TOTAL 0.9 mg/dL (0.2-1); TOT PROT 7.1 g/dl (6.4-8.2)
[2022-05-30 15:50] LABS: EPI CELLS 7 /uL (0-25.1); HYALINE CASTS 2 /uL (0-3.1); URINE APPEARANCE TURBID; URINE BACTERIA 0 /uL (0-1359); URINE BILIRUBIN NEGATIVE (NEGATIVE); URINE COLOR ORANGE; URINE GLUCOSE (UA) NEGATIVE (NEGATIVE); URINE KETONE NEGATIVE (NEGATIVE); URINE LEUK ESTERASE 1+ (NEGATIVE); URINE NITRITE NEGATIVE (NEGATIVE); URINE PROTEIN 2+ (NEGATIVE); URINE RBC 21467 /uL (0-23.9); URINE WBC 70 /uL (0-25.8)
[2022-05-30 16:17] VITALS: BP 121/68; PULSE 63; RESP 16
== END 2022-05-30 18:12 | disposition home or self-care (01) ==
LOC: JER 13:04
DX: R31.9 Hematuria, unspecified (principal)
CPT/HCPCS: 36415; 76775-TC; 80053; 81003; 83690; 83735; 84100; 85025; 85610; 85730; 87086; 93005; 93010; 99285-25

== ENCOUNTER 2022-08-11 22:31 | Inpatient (IN) | payer OTHER ==
[2022-08-12 00:19] LABS: BASO % 0.2 % (0-2.0); EOS % 0.1 % (0-4.5); HEMATOCRIT 32.8 % (35.4-49); HEMOGLOBIN 11.4 GM/dL (11.7-16.9); LYMPH % 6.2 % (8-40); MCHC 34.6 g/dl (32.0-35.9); MEAN CELL VOLUME 89.6 fl (80-96); MONO % 8.3 % (3.8-10.2); NEUT % 85.2 % (42.8-82.8); PLATELET COUNT 231 10^3/uL (134-434); RBC 3.66 M/mm3 (4.00-5.60); RDW 14.4 % (11.9-15.9); WHITE BLOOD COUNT 13.9 K/mm3 (4.0-10.0)
[2022-08-12 00:26] LABS: INR 1.13 (0.83-1.09); PROTHROMBIN TIME (PATIENT) 13.1 SEC (9.7-13.0)
[2022-08-12 00:38] LABS: CALCIUM 9.1 mg/dL (8.5-10.1)
[2022-08-12 00:39] LABS: ALBUMIN 3.4 g/dl (3.4-5.0); BLOOD UREA NITROGEN 26.7 mg/dL (7-18)
[2022-08-12 00:42] LABS: CREATININE 1.3 mg/dL (0.55-1.3)
[2022-08-12 00:44] LABS: BILIRUBIN,TOTAL 0.8 mg/dL (0.2-1); TOT PROT 6.2 g/dl (6.4-8.2)
[2022-08-12] MEDS ORDERED: POTASSIUM CHLORIDE ORAL LIQUID 20 MEQ/15 ML PO ONE ×2 (01:20→15:57)
[2022-08-12 01:36] LABS: URINE APPEARANCE BLOODY; URINE COLOR RED
[2022-08-12] MEDS ORDERED: LACTATED RINGERS SOLUTION 1000 ML INFUS.BAG IV ONE (01:37)
[2022-08-12 01:38] LABS: URINE BILIRUBIN NEGATIVE (NEGATIVE); URINE GLUCOSE (UA) TRACE (NEGATIVE); URINE KETONE NEGATIVE (NEGATIVE)
[2022-08-12 01:39] LABS: URINE UROBILINOGEN 0.2 mg/dL (0.2-1.0)
[2022-08-12 01:45] LABS: EPI CELLS FEW /uL (0-25.1); URINE RBC >100 /uL (0-23.9); URINE WBC 0-3 /uL (0-25.8)
[2022-08-12] MEDS ORDERED: POTASSIUM CHLORIDE ORAL LIQUID 20 MEQ/15 ML ONE (04:13)
[2022-08-12] MEDS ORDERED: INSULIN SLIDING SCALE (NOVOLOG) 1 VIAL SQ SCH (07:00)
[2022-08-12] MEDS ORDERED: TAMSULOSIN HCL 0.4 MG CAP ONE (08:37)
[2022-08-12] MEDS: TAMSULOSIN HCL 0.4 MG CAP PO SCH (08:39)
[2022-08-12 12:14] LABS: HEMATOCRIT 32.1 % (35.4-49); HEMOGLOBIN 11.2 GM/dL (11.7-16.9); MCH 31.2 pg (25.7-33.7); MEAN CELL VOLUME 89.2 fl (80-96); MEAN PLT VOLUME 7.2 fl (7.5-11.1); PLATELET COUNT 225 10^3/uL (134-434); RDW 14.7 % (11.9-15.9); RETICULOCYTES 1.67 % (0.5-1.5); WHITE BLOOD COUNT 9.5 K/mm3 (4.0-10.0)
[2022-08-12 12:39] LABS: BLOOD UREA NITROGEN 20.1 mg/dL (7-18)
[2022-08-12 12:40] LABS: MAGNESIUM 2.2 mg/dL (1.8-2.4)
[2022-08-12 12:42] LABS: PHOSPHOROUS 3.6 mg/dL (2.5-4.9)
[2022-08-12 12:51] VITALS: BMI 27.8
[2022-08-12 15:36] LABS: HEMATOCRIT 30.4 % (35.4-49); HEMOGLOBIN 10.5 GM/dL (11.7-16.9); MCH 30.9 pg (25.7-33.7); MCHC 34.5 g/dl (32.0-35.9); MEAN CELL VOLUME 89.7 fl (80-96); MEAN PLT VOLUME 6.8 fl (7.5-11.1); PLATELET COUNT 216 10^3/uL (134-434); RDW 14.3 % (11.9-15.9); WHITE BLOOD COUNT 8.9 K/mm3 (4.0-10.0)
[2022-08-12] MEDS: ROSUVASTATIN CA 20 MG TABLET PO SCH (21:52)
[2022-08-13 08:50] LABS: BASO % 0.5 % (0-2.0); EOS % 2.4 % (0-4.5); HEMATOCRIT 30.4 % (35.4-49); HEMOGLOBIN 10.5 GM/dL (11.7-16.9); LYMPH % 18.2 % (8-40); MCH 31.1 pg (25.7-33.7); MCHC 34.6 g/dl (32.0-35.9); MEAN PLT VOLUME 7.1 fl (7.5-11.1); MONO % 8.6 % (3.8-10.2); NEUT % 70.3 % (42.8-82.8); PLATELET COUNT 227 10^3/uL (134-434); RBC 3.38 M/mm3 (4.00-5.60); RDW 14.6 % (11.9-15.9); WHITE BLOOD COUNT 7.4 K/mm3 (4.0-10.0)
[2022-08-13] MEDS: TAMSULOSIN HCL 0.4 MG CAP PO SCH (09:13)
[2022-08-13 09:22] LABS: ALBUMIN 3.2 g/dl (3.4-5.0); CALCIUM 8.6 mg/dL (8.5-10.1)
[2022-08-13 09:23] LABS: BLOOD UREA NITROGEN 18.7 mg/dL (7-18); MAGNESIUM 2.1 mg/dL (1.8-2.4)
[2022-08-13 09:24] LABS: PHOSPHOROUS 3.4 mg/dL (2.5-4.9)
[2022-08-13 09:25] LABS: CREATININE 1.1 mg/dL (0.55-1.3)
[2022-08-13] MEDS: ROSUVASTATIN CA 20 MG TABLET PO SCH (21:59)
[2022-08-14] MEDS: TAMSULOSIN HCL 0.4 MG CAP PO SCH (08:38)
[2022-08-14 10:26] LABS: BASO % 0.3 % (0-2.0); EOS % 1.4 % (0-4.5); HEMATOCRIT 29.9 % (35.4-49); HEMOGLOBIN 10.6 GM/dL (11.7-16.9); LYMPH % 13.9 % (8-40); MCH 31.6 pg (25.7-33.7); MCHC 35.3 g/dl (32.0-35.9); MEAN CELL VOLUME 89.3 fl (80-96); MEAN PLT VOLUME 7.5 fl (7.5-11.1); MONO % 8.7 % (3.8-10.2); NEUT % 75.7 % (42.8-82.8); PLATELET COUNT 243 10^3/uL (134-434); RBC 3.35 M/mm3 (4.00-5.60); RDW 14.5 % (11.9-15.9); WHITE BLOOD COUNT 7.2 K/mm3 (4.0-10.0)
[2022-08-14 10:51] LABS: BLOOD UREA NITROGEN 16.1 mg/dL (7-18)
[2022-08-14 10:52] LABS: ALBUMIN 3.2 g/dl (3.4-5.0); CALCIUM 8.5 mg/dL (8.5-10.1)
[2022-08-14 10:55] LABS: PHOSPHOROUS 1.9 mg/dL (2.5-4.9)
[2022-08-14 10:57] LABS: BILIRUBIN,TOTAL 0.8 mg/dL (0.2-1); TOT PROT 6.1 g/dl (6.4-8.2)
[2022-08-14] MEDS ORDERED: ONDANSETRON 4 MG/2 ML VIAL IVPUSH PRN ×2 (14:27→17:17)
[2022-08-14] MEDS ORDERED: PROMETHAZINE HCL 25 MG/1 ML VIAL IVPB PRN ×2 (14:27→17:17)
[2022-08-14] MEDS ORDERED: LACTATED RINGERS SOLUTION 1,000 ML IV SCH (14:30)
[2022-08-14] MEDS ORDERED: AMPICILLIN NA/SULBACTAM NA 3 GM VIAL IVPB ONE (16:16)
[2022-08-14] MEDS: LACTATED RINGERS SOLUTION 1,000 ML IV SCH (18:20)
[2022-08-14] MEDS: ROSUVASTATIN CA 20 MG TABLET PO SCH (22:33)
[2022-08-15] MEDS: LACTATED RINGERS SOLUTION 1,000 ML IV SCH (02:55)
[2022-08-15 09:06] LABS: BASO % 0.4 % (0-2.0); EOS % 4.9 % (0-4.5); HEMATOCRIT 28.3 % (35.4-49); HEMOGLOBIN 9.9 GM/dL (11.7-16.9); LYMPH % 16.1 % (8-40); MCH 31.4 pg (25.7-33.7); MCHC 34.9 g/dl (32.0-35.9); MEAN CELL VOLUME 89.8 fl (80-96); MONO % 10.3 % (3.8-10.2); NEUT % 68.3 % (42.8-82.8); PLATELET COUNT 222 10^3/uL (134-434); RBC 3.15 M/mm3 (4.00-5.60); RDW 14.4 % (11.9-15.9); WHITE BLOOD COUNT 7.5 K/mm3 (4.0-10.0)
[2022-08-15 09:07] LABS: CALCIUM 8.3 mg/dL (8.5-10.1)
[2022-08-15 09:08] LABS: ALBUMIN 2.9 g/dl (3.4-5.0); BLOOD UREA NITROGEN 11.4 mg/dL (7-18); MAGNESIUM 2.3 mg/dL (1.8-2.4)
[2022-08-15 09:11] LABS: CREATININE 0.9 mg/dL (0.55-1.3); PHOSPHOROUS 3.6 mg/dL (2.5-4.9)
[2022-08-15 09:13] LABS: BILIRUBIN,TOTAL 0.8 mg/dL (0.2-1); TOT PROT 5.6 g/dl (6.4-8.2)
[2022-08-15] MEDS: TAMSULOSIN HCL 0.4 MG CAP PO SCH (09:55)
[2022-08-15] MEDS: CLOPIDOGREL BISULFATE 75 MG TABLET (FP) PO SCH (11:27)
[2022-08-15] MEDS: ASPIRIN 81 MG CHEWABLE TABLETS PO SCH (11:27)
[2022-08-15] MEDS: ROSUVASTATIN CA 20 MG TABLET PO SCH (21:24)
[2022-08-16] MEDS: TAMSULOSIN HCL 0.4 MG CAP PO SCH (08:41)
[2022-08-16 08:50] LABS: BASO % 0.6 % (0-2.0); EOS % 4.6 % (0-4.5); HEMATOCRIT 28.6 % (35.4-49); HEMOGLOBIN 9.7 GM/dL (11.7-16.9); LYMPH % 18.6 % (8-40); MCH 30.9 pg (25.7-33.7); MEAN CELL VOLUME 90.8 fl (80-96); MEAN PLT VOLUME 7.1 fl (7.5-11.1); MONO % 9.8 % (3.8-10.2); NEUT % 66.4 % (42.8-82.8); PLATELET COUNT 229 10^3/uL (134-434); RBC 3.15 M/mm3 (4.00-5.60); RDW 14.5 % (11.9-15.9)
[2022-08-16 09:05] LABS: CALCIUM 8.5 mg/dL (8.5-10.1)
[2022-08-16 09:06] LABS: ALBUMIN 2.9 g/dl (3.4-5.0); BLOOD UREA NITROGEN 12.4 mg/dL (7-18); MAGNESIUM 2.4 mg/dL (1.8-2.4)
[2022-08-16 09:09] LABS: CREATININE 0.9 mg/dL (0.55-1.3); PHOSPHOROUS 3.3 mg/dL (2.5-4.9)
[2022-08-16 09:10] LABS: BILIRUBIN,TOTAL 0.6 mg/dL (0.2-1); TOT PROT 5.7 g/dl (6.4-8.2)
[2022-08-16] MEDS: ROSUVASTATIN CA 20 MG TABLET PO SCH (21:27)
[2022-08-17] MEDS: TAMSULOSIN HCL 0.4 MG CAP PO SCH (07:53)
[2022-08-17 08:52] LABS: BASO % 0.5 % (0-2.0); EOS % 4.2 % (0-4.5); HEMATOCRIT 30.9 % (35.4-49); HEMOGLOBIN 10.8 GM/dL (11.7-16.9); LYMPH % 17.5 % (8-40); MCH 31.7 pg (25.7-33.7); MCHC 35.1 g/dl (32.0-35.9); MEAN CELL VOLUME 90.1 fl (80-96); MEAN PLT VOLUME 6.9 fl (7.5-11.1); MONO % 8.6 % (3.8-10.2); NEUT % 69.2 % (42.8-82.8); PLATELET COUNT 255 10^3/uL (134-434); RBC 3.42 M/mm3 (4.00-5.60); RDW 14.2 % (11.9-15.9); WHITE BLOOD COUNT 6.8 K/mm3 (4.0-10.0)
[2022-08-17] MEDS: ASPIRIN 81 MG CHEWABLE TABLETS PO SCH (09:00)
[2022-08-17] MEDS: CLOPIDOGREL BISULFATE 75 MG TABLET (FP) PO SCH (09:00)
[2022-08-17 09:21] LABS: CALCIUM 8.6 mg/dL (8.5-10.1)
[2022-08-17 09:22] LABS: ALBUMIN 3.1 g/dl (3.4-5.0); BLOOD UREA NITROGEN 15.2 mg/dL (7-18); MAGNESIUM 2.4 mg/dL (1.8-2.4)
[2022-08-17 09:25] LABS: CREATININE 0.8 mg/dL (0.55-1.3); PHOSPHOROUS 3.1 mg/dL (2.5-4.9)
[2022-08-17 09:26] LABS: BILIRUBIN,TOTAL 0.5 mg/dL (0.2-1)
[2022-08-17] MEDS: LACTATED RINGERS SOLUTION 1,000 ML IV SCH (17:00)
[2022-08-17] MEDS: ROSUVASTATIN CA 20 MG TABLET PO SCH (21:26)
[2022-08-18 06:15] VITALS: RESP 20
[2022-08-18 08:35] LABS: BASO % 0.4 % (0-2.0); EOS % 4.4 % (0-4.5); HEMATOCRIT 30.6 % (35.4-49); HEMOGLOBIN 10.7 GM/dL (11.7-16.9); LYMPH % 18.5 % (8-40); MCH 31.1 pg (25.7-33.7); MCHC 34.9 g/dl (32.0-35.9); MEAN CELL VOLUME 89.3 fl (80-96); MONO % 10.3 % (3.8-10.2); NEUT % 66.4 % (42.8-82.8); PLATELET COUNT 267 10^3/uL (134-434); RBC 3.43 M/mm3 (4.00-5.60); RDW 14.1 % (11.9-15.9); WHITE BLOOD COUNT 7.2 K/mm3 (4.0-10.0)
[2022-08-18] MEDS: TAMSULOSIN HCL 0.4 MG CAP PO SCH (08:38)
[2022-08-18 09:11] LABS: CALCIUM 8.6 mg/dL (8.5-10.1); MAGNESIUM 2.3 mg/dL (1.8-2.4)
[2022-08-18 09:12] LABS: PHOSPHOROUS 3.2 mg/dL (2.5-4.9)
[2022-08-18 09:13] LABS: CREATININE 0.9 mg/dL (0.55-1.3)
[2022-08-18 09:14] LABS: BILIRUBIN,TOTAL 0.5 mg/dL (0.2-1)
[2022-08-18] MEDS: ASPIRIN 81 MG CHEWABLE TABLETS PO SCH (11:26)
[2022-08-18] MEDS: CLOPIDOGREL BISULFATE 75 MG TABLET (FP) PO SCH (11:26)
[2022-08-18 14:17] VITALS: BP 142/72; PULSE 69; TEMP 97.5
== END 2022-08-18 16:14 | disposition home or self-care (01) | DRG 713 ==
LOC: JER 22:31 → JERBED 08-12 04:03 → OBSVTOIN 08-12 06:19 → J6S 08-12 09:12
PROVIDERS: ADMIT Internal Medicine; ATTEND Internal Medicine
PROC: 0VT08ZZ Resection of Prostate, Via Natural or Artificial Opening Endoscopic (ICD-10-PCS; principal; 2022-08-14 15:30)
PROC: 0W3R8ZZ Control Bleeding in Genitourinary Tract, Via Natural or Artificial Opening Endoscopic (ICD-10-PCS; 2022-08-14 15:30)
DX: N40.1 Benign prostatic hyperplasia with lower urinary tract symptoms (principal); N13.30 Unspecified hydronephrosis; I10 Essential (primary) hypertension; R31.0 Gross hematuria; E78.5 Hyperlipidemia, unspecified; Z86.73 Personal history of transient ischemic attack (TIA), and cerebral infarction without residual deficits; E87.6 Hypokalemia; R73.9 Hyperglycemia, unspecified
CPT/HCPCS: 36415; 71045-TC-FY; 74177-TC; 80048; 80053; 81003; 82728; 82962; 83036; 83540; 83550; 83735; 84100; 84484; 85025; 85027; 85045; 85610; 85730; 86850; 86900; 86901; 87086; 87186; 88305-TC; 93005; 93010; 94760; 99285-25; C9803-CS; G0378; Q9967; U0003; U0005